=== PATIENT | female | born 1955 | race American Indian/Alaskan Native ===

== ENCOUNTER 2017-01-12 05:41 | Inpatient (IN) | payer OTHER ==
--- NOTE | 2017-01-12 06:22 | Emergency Department Report ---
ED General Adult HPI - General Chief complaint: Abdominal Pain Stated complaint: ABD PAIN Time Seen by Provider: 01/12/17 06:15 Source: patient Mode of arrival: Ambulatory Limitations: No Limitations - History of Present Illness Initial comments: Patient states that yesterday she swallowed a camera for video endoscopy. During the day she began to have crampy abdominal pain which became more constant and present in the mid abdominal region. It did not radiate nor involve the back at all. She denied fever or chills nausea and vomiting. She states that it's been a year since she's had pain like this before. She relates the pain to a "pancreatic tumor". She doesn't know if the tumor is benign as she has never had a biopsy. She states that diagnosis was made at [facility] one year ago and they were never recommended a biopsy. She denies a history of gallstones and also denies a history of pancreatic cyst or pancreatitis. Despite denying a pancreatic pseudocyst, CT of the abdomen here showed that the patient does indeed have a pancreatic pseudocyst at that time without pancreatitis. -: Gradual, days(s) Location: abdomen Radiation: non-radiation Quality: aching Consistency: constant Improves with: none Worsens with: none Associated Symptoms: denies other symptoms Treatments Prior to Arrival: none - Related Data Home Medications Medication Instructions Recorded Confirmed Last Taken amLODIPine [Norvasc] 10 mg PO DAILY 01/12/17 01/12/17 01/11/17 Allergies Allergy/AdvReac Type Severity Reaction Status Date / Time No Known Allergies Allergy Verified 01/06/16 02:02 ED Review of Systems ROS: Stated complaint: ABD PAIN Other details as noted in HPI Constitutional: denies: chills, fever Eyes: denies: eye pain, eye discharge, vision change ENT: denies: ear pain, throat pain Respiratory: denies: cough, shortness of breath, wheezing Cardiovascular: denies: chest pain, palpitations Endocrine: no symptoms reported Gastrointestinal: as per HPI, abdominal pain. denies: nausea, vomiting, diarrhea Genitourinary: denies: urgency, dysuria, discharge Musculoskeletal: denies: back pain, joint swelling, arthralgia Skin: denies: rash, lesions Neurological: denies: headache, weakness, paresthesias Psychiatric: denies: anxiety, depression Hematological/Lymphatic: denies: easy bleeding, easy bruising ED Past Medical Hx - Past Medical History Previous Medical History?: Yes Hx Hypertension: Yes Additional medical history: Tumor on Pancreas - Surgical History Past Surgical History?: No - Social History Smoking Status: Current Every Day Smoker Substance Use Type: None - Medications Home Medications: Home Medications Medication Instructions Recorded Confirmed Last Taken Type amLODIPine [Norvasc] 10 mg PO DAILY 01/12/17 01/12/17 01/11/17 History ED Physical Exam - General Limitations: No Limitations General appearance: alert, in no apparent distress - Head Head exam: Present: atraumatic, normocephalic - Eye Eye exam: Present: normal appearance, PERRL, EOMI. Absent: scleral icterus - ENT ENT exam: Present: mucous membranes moist - Neck Neck exam: Present: normal inspection - Respiratory Respiratory exam: Present: normal lung sounds bilaterally. Absent: respiratory distress - Cardiovascular Cardiovascular Exam: Present: regular rate, normal rhythm. Absent: systolic murmur, diastolic murmur, rubs, gallop - GI/Abdominal GI/Abdominal exam: Present: soft, distended (perhaps somewhat), tenderness (mid abdominal discomfort to palpation without peritoneal signs), normal bowel sounds. Absent: guarding, rebound, rigid - Extremities Exam Extremities exam: Present: normal inspection - Back Exam Back exam: Present: normal inspection. Absent: CVA tenderness (R), CVA tenderness (L) - Neurological Exam Neurological exam: Present: alert, oriented X3, CN II-XII intact. Absent: motor sensory deficit - Psychiatric Psychiatric exam: Present: normal affect, normal mood - Skin Skin exam: Present: warm, dry, intact, normal color. Absent: rash ED Course Vital Signs 01/12/17 01/12/17 01/12/17 05:42 06:40 07:00 Temperature 98.1 F Pulse Rate 109 H 94 H Respiratory 16 24 Rate Blood Pressure 137/83 128/65 Blood Pressure [Left] O2 Sat by Pulse 100 93 Oximetry 01/12/17 01/12/17 01/12/17 07:22 08:00 09:00 Temperature 99.1 F Pulse Rate 102 H 87 91 H Respiratory 22 18 18 Rate Blood Pressure 124/62 140/62 Blood Pressure 128/65 [Left] O2 Sat by Pulse 100 95 99 Oximetry 01/12/17 01/12/17 01/12/17 10:11 11:00 11:26 Temperature Pulse Rate 94 H Respiratory 16 17 Rate Blood Pressure 140/62 135/67 Blood Pressure [Left] O2 Sat by Pulse 89 96 Oximetry - Reevaluation(s) Reevaluation #1: I discussed the CT report with Dr. Montgomery. Dr. Gao has seen the patient and discussed the case with me. He does not believe the patient has a surgical issue at this time. He does not recommend nasogastric suction. He does not believe the patient has partial small bowel obstruction. He is also reviewed the CT with Dr. Montgomery. I discussed the case with Dr. Lucas Jesus [facility]. He recommended the patient be given mag citrate. I have ordered this. I have placed a consult. I discussed the case with Dr. oRb. He requested that I provide bridge orders for telemetry. This has been done. 01/12/17 12:11 Reevaluation #2: On reexamination the patient remains stable. She didn't complain of some persistent abdominal pain and she was given 2 mg of morphine. She was subsequently evaluated by Dr. Gao. 01/12/17 12:12 Reevaluation #3: A chest x-ray was obtained in addition in view of the patient's hypoxia and hypercapnia. It showed no acute process. Patient states that she has been a long-term smoker. She's never been told that she has a low oxygen level. She' s never been on supplemental O2. She does not complain of any acute shortness of breath. She does not use nebulizer treatments. Her pulse oximetry was 94% on 2 L. Respiratory was directed to repeat her blood gas to assure that she is not retaining significant CO2. I suspect patient may have chronic hypercapnic respiratory failure. Hospitalist is aware of these findings. Further evaluation per hospitalist staff. 01/12/17 12:13 01/12/17 12:14 ED Medical Decision Making - Lab Data Result diagrams: 01/12/17 06:08 01/12/17 07:17 Laboratory Results - last 24 hr 01/12/17 01/12/17 06:08 06:08 WBC 11.6 H RBC 5.07 H Hgb 14.1 Hct 43.2 H MCV 85 MCH 28 MCHC 33 RDW 15.3 H Plt Count 287 Lymph % (Auto) 14.0 [place] % (Auto) 4.6 Eos % (Auto) 0.1 Baso % (Auto) 0.3 Lymph # 1.6 [place] # 0.5 Eos # 0.0 Baso # 0.0 Seg Neutrophils % 81.0 H Seg Neutrophils # 9.4 H Sodium 136 L Potassium TNR Chloride 100.0 Carbon Dioxide 25 Anion Gap 17 BUN 7 Creatinine 0.8 Estimated GFR > 60 BUN/Creatinine Ratio 8.75 Glucose 124 H Calcium 8.7 Total Bilirubin 0.40 AST TNR ALT TNR Alkaline Phosphatase TNR Total Protein 8.2 Albumin 3.5 L Albumin/Globulin Ratio 0.7 Lipase 37 - Radiology Data Radiology results: report reviewed Critical Care Time: Yes Critical care time in (mins) excluding proc time.: 75 Critical care attestation.: If time is entered above; I have spent that time in minutes in the direct care of this critically ill patient, excluding procedure time. ED Disposition Clinical Impression: Hypoxia, Chronic hypercapnic respiratory failure Abdominal pain Qualifiers: Abdominal location: periumbilical Qualified Code(s): R10.33 - Periumbilical pain COPD (chronic obstructive pulmonary disease) Qualifiers: COPD type: unspecified COPD Qualified Code(s): J44.9 - Chronic obstructive pulmonary disease, unspecified Disposition: DC-09 OP ADMIT IP TO THIS HOSP Is pt being admited?: Yes Does the pt Need Aspirin: Yes Condition: Stable Time of Disposition: 12:16
[2017-01-12 06:36] LABS: Basophils % (Auto) 0.3 % (0.0-1.8); Eosinophils % (Auto) 0.1 % (0.0-4.3); Hematocrit 43.2 % (30.3-42.9); Hemoglobin 14.1 gm/dl (10.1-14.3); Mean Corpuscular HGB Conc 33 % (30-34); Mean Corpuscular Hemoglobin 28 pg (28-32); Mean Corpuscular Volume 85 fl (79-97); Platelet Count 287 K/mm3 (140-440); Red Blood Count 5.07 M/mm3 (3.65-5.03); Red Cell Distribution Width 15.3 % (13.2-15.2); White Blood Count 11.6 K/mm3 (4.5-11.0)
[2017-01-12] MEDS ORDERED: ZOFRAN IV ONE (06:49)
[2017-01-12] MEDS ORDERED: NACL 0.9% 1000 ML 1,000 ML IV ONE (06:49)
[2017-01-12] MEDS ORDERED: MORPHINE IV ONE ×3 (06:49→11:12)
[2017-01-12 06:51] LABS: Albumin 3.5 g/dL (3.9-5); Albumin/Globulin Ratio 0.7 %; Anion Gap 17 mmol/L; BUN/Creatinine Ratio 8.75; Blood Urea Nitrogen 7 mg/dL (7-17); Calcium 8.7 mg/dL (8.4-10.2); Carbon Dioxide 25 mmol/L (22-30); Glucose 124 mg/dL (65-100); Lipase 37 units/L (13-60); Sodium 136 mmol/L (137-145); Total Protein 8.2 g/dL (6.3-8.2)
[2017-01-12 06:53] LABS: Alanine Aminotransferase TNR units/L (7-56)
[2017-01-12 06:55] LABS: Potassium TNR mmol/L (3.6-5.0)
[2017-01-12 06:56] LABS: Alkaline Phosphatase TNR units/L (35-129)
[2017-01-12] MEDS ORDERED: NACL ONE (07:00)
[2017-01-12 07:46] LABS: Alanine Aminotransferase 7 units/L (7-56); Albumin 3.6 g/dL (3.9-5); Albumin/Globulin Ratio 0.9 %; Alkaline Phosphatase 80 units/L (35-129); Anion Gap 16 mmol/L; BUN/Creatinine Ratio 11.42; Blood Urea Nitrogen 8 mg/dL (7-17); Calcium 8.5 mg/dL (8.4-10.2); Carbon Dioxide 27 mmol/L (22-30); Chloride 98.7 mmol/L (98-107); Glucose 143 mg/dL (65-100); Potassium 3.9 mmol/L (3.6-5.0); Sodium 138 mmol/L (137-145); Total Protein 7.6 g/dL (6.3-8.2)
[2017-01-12 07:52] LABS: Bilirubin,Direct < 0.2 mg/dL (0-0.2)
[2017-01-12 08:47] LABS: Bilirubin,Urine NEG (Negative)
[2017-01-12 08:48] LABS: Blood,Urine NEG (Negative); Ketones,Urine NEG (Negative); Leukocyte Esterase,Urine NEG (Negative); Mucus,Urine FEW /HPF; Nitrite,Urine NEG (Negative); Urobilinogen,Urine < 2.0 mg/dL (<2.0)
--- NOTE | 2017-01-12 09:40 | Cat Scan Report ---
CT SCAN OF THE ABDOMEN AND PELVIS WITH CONTRAST: HISTORY: Abdominal pain. TECHNIQUE: Helical CT in 1.25mm intervals following IV contrast. Sagittal and coronal reconstructions. FINDINGS: Compared to 01/06/16. Heart size remains normal. The lung bases are clear. No acute bony injury or suspicious bony nodule. The liver, biliary system, spleen, pancreas and adrenal glands are unremarkable. There are multiple bilateral small renal cysts measuring less than 1.5 cm. No evidence for hydronephrosis or perinephric fluid. The ureters and bladder are unremarkable. A fundal fibroid measures 6 point centimeters. The adnexa are unremarkable. Trace pelvic fluid is noted. Circumferential thickening of a few distal small bowel loops is again demonstrated and consistent with a nonspecific enteritis. There is a radiopaque density which generates streak artifact and a distal small bowel loop on image 243, series 2. This is best demonstrated on the medical corps officer image. This may represent an ingested foreign body. There are a few borderline dilated proximal small bowel loops. There may be low level obstruction. Please correlate with the patient and images. IMPRESSION: Findings consistent with a nonspecific enteritis which has improved slightly since 01/06/16. There is suggestion of an intraluminal/ingested foreign body in a distal small bowel loop as outlined above. Please correlate with the patient and images. There may be a low level obstruction. Multiple bilateral renal cysts. Uterine fibroid.
[2017-01-12 10:44] LABS: ISTAT Base Excess 1; ISTAT DEVICE 0; ISTAT HCO3 26.9; ISTAT PCO2 54.1 (35-45); ISTAT PH 7.305 (7.35-7.45); ISTAT PO2 49 (80-105); ISTAT SO2 80; ISTAT TCO2 29
--- NOTE | 2017-01-12 11:29 | XRay Report ---
AP chest x-ray. History: Hypoxia. Findings: The heart, lungs, and pulmonary vessels are within normal limits.
--- NOTE | 2017-01-12 11:57 | Admit Criteria Form ---
Admission Criteria Documentation: RESPIRATORY FAILURE GRG Clinical Indications for Admission to Inpatient Care (Place 'X' for any and all applicable criteria): Hospital admission is needed for appropriate care of the patient because of acute respiratory failure or insufficiency as indicated by ANY ONE of the following(1)(2)(3)(4)(5)(6)(7)(8): [ ]I. Mechanical ventilation needed (acute invasive or noninvasive) [X ]II. Severe ventilation deficit as indicated by ANY ONE of the following (9 ) [ X]a) Respiratory acidosis (pH less than 7.32 and partial pressure of carbon dioxide greater than 40 mm Hg (5.3 kPa)) [ ]b) Partial pressure of carbon dioxide greater than 44 mm Hg (5.9 kPa ) (new) [ ]c) Airflow measurements less than 25% of predicted (eg, peak expiratory flow rate less than 100 L/minute) [ ]d) Forced vital capacity less than 15 mL/kg of ideal body weight, or 50% decrease in vital capacity from baseline [ ]III. Noncardiac pulmonary edema not resolving with rapid emergency treatment (8) [ ]IV. Severe respiratory distress as indicated by ANY ONE of the following: [ ]a) Severe tachypnea (respiratory rate greater than 30, greater than 45 for 6-month-old, greater than 60 for ) [ ]b) Severe hypoxemia (partial pressure of oxygen less than 50 mm Hg ( 6.7 kPa) on greater than 50% oxygen or partial pressure of oxygen to FIO2 ratio less than 200) [ ]c) Mental status deterioration from respiratory disease [ ]V. Airway obstruction or inadequate protection [A](10)(11) The original [employer] content created by [employer] has been revised. The portions of the content which have been revised are identified through the use of italic text or in bold, and [employer], [facility] [employer] has neither reviewed nor approved the modified material. All other unmodified content is copyright [employer]. Please see references footnoted in the original [employer] edition 2016 Admission Criteria Met: Yes
[2017-01-12] MEDS ORDERED: CITRATE OF MAGNESIA PO ONE ×2 (12:07→17:00)
--- NOTE | 2017-01-12 13:49 | Gastroenterology Consultation ---
History of Present Illness - Reason for Consult Consult date: 01/12/17 abd pain/pill cam hang up Requesting physician: LIANG OSEGUERA - History of Present Illness Patient is a 61 y/o female who presented to the ER with c/o abd pain that developed yesterday after swallowing a pill cam for a capsule endoscopy ordered by Dr. Barragan at [place]. She is also having episodes of N/V. CT scan revealed nonspecific enteritis and an intraluminal/ingested foreign body it the distal small bowel. Her abdomen is soft and non-distended with generalized TTP. Denies fever, wt loss, dysphagia, hematemesis, melena, diarrhea, constipation, or hematochezia. PMH significant for HTN and Asthma. Past History Past Medical History: hypertension, other (asthma) Past Surgical History: , Other (tubal ligation) Social history: lives with family, smoking. denies: alcohol abuse Medications and Allergies Allergies Allergy/AdvReac Type Severity Reaction Status Date / Time No Known Allergies Allergy Verified 01/06/16 02:02 Home Medications Medication Instructions Recorded Confirmed Last Taken Type amLODIPine [Norvasc] 10 mg PO DAILY 01/12/17 01/12/17 01/11/17 History Active Meds: Active Medications Aspirin (Baby Aspirin) 81 mg PO QDAY JARRETT Review of Systems - Review of Systems All systems: negative Gastrointestinal: abdominal pain, nausea, vomiting Exam - Constitutional Vital Signs: Temp Pulse Resp BP Pulse Ox 99.1 F 100 H 17 135/67 96 01/12/17 07:22 01/12/17 12:45 01/12/17 11:26 01/12/17 11:00 01/12/17 11:00 General appearance: no acute distress, well-nourished - EENT Eyes: PERRL, EOM intact ENT: hearing intact - Neck Neck: supple, normal ROM - Respiratory Respiratory: bilateral: diminished - Cardiovascular Rhythm: regular Heart Sounds: Present: S1 & S2 - Gastrointestinal General gastrointestinal: Present: soft, tender (generalized), non-distended, normal bowel sounds - Integumentary Integumentary: Present: warm, dry - Neurologic Neurological: alert and oriented x3 - Psychiatric Psychiatric: appropriate mood/affect, cooperative - Labs CBC & Chem 7: 01/12/17 06:08 01/12/17 07:17 Assessment and Plan 1.abd pain 2.ingestion of foreign body (pill cam) -abd pain developed after swallowing a pill cam yesterday for a capsule endoscopy -CT scan revealed nonspecific colitis and an intraluminal/ingested foreign body in the distal small bowel -will give magnesium citrate now -KUB in am -will start on empiric antibiotics (flagyl and levaquin) -continue supportive care -will follow
[2017-01-12] MEDS ORDERED: FLAGYL 500 MG/100 ML 500 MG/100 ML BAG IV SCH (14:00)
[2017-01-12] MEDS ORDERED: ZOFRAN IV PRN ×2 (14:06→20:54)
[2017-01-12 18:20] LABS: ISTAT Base Excess 5; ISTAT PH 7.369 (7.35-7.45); ISTAT PO2 81 (80-105); ISTAT SO2 95; ISTAT TCO2 32
--- NOTE | 2017-01-12 20:50 | History and Physical Report ---
History of Present Illness Date of examination: 01/12/17 Date of admission: 01/12/17 11:32 Chief complaint: Abd pain for 1 day History of present illness: History of Present Illness Patient states that yesterday she swallowed a camera for video endoscopy. During the day she began to have crampy abdominal pain which became more constant and present in the mid abdominal region. It did not radiate nor involve the back at all. She denied fever or chills nausea and vomiting. She states that it's been a year since she's had pain like this before. She relates the pain to a "pancreatic tumor". She doesn't know if the tumor is benign as she has never had a biopsy. She states that diagnosis was made at [place] one year ago and they were never recommended a biopsy. She denies a history of gallstones and also denies a history of pancreatic cyst or pancreatitis. Despite denying a pancreatic pseudocyst, CT of the abdomen here showed that the patient does indeed have a pancreatic pseudocyst at that time without pancreatitis. -: Gradual, days(s) Location: abdomen Radiation: non-radiation Quality: aching Consistency: constant Improves with: none Worsens with: none Associated Symptoms: denies other symptoms Treatments Prior to Arrival: none - Related Data Home Medications Medication Instructions Recorded Confirmed Last Taken amLODIPine [Norvasc] 10 mg PO DAILY 01/12/17 01/12/17 01/11/17 Allergies Allergy/AdvReac Type Severity Reaction Status Date / Time No Known Allergies Allergy Verified 01/06/16 02:02 ROS: Stated complaint: ABD PAIN Other details as noted in HPI Constitutional: denies: chills, fever Eyes: denies: eye pain, eye discharge, vision change ENT: denies: ear pain, throat pain Respiratory: denies: cough, shortness of breath, wheezing Cardiovascular: denies: chest pain, palpitations Endocrine: no symptoms reported Gastrointestinal: as per HPI, abdominal pain. denies: nausea, vomiting, diarrhea Genitourinary: denies: urgency, dysuria, discharge Musculoskeletal: denies: back pain, joint swelling, arthralgia Skin: denies: rash, lesions Neurological: denies: headache, weakness, paresthesias Psychiatric: denies: anxiety, depression Hematological/Lymphatic: denies: easy bleeding, easy bruising - Past Medical History Previous Medical History?: Yes Hx Hypertension: Yes Additional medical history: Tumor on Pancreas - Surgical History Past Surgical History?: No - Social History Smoking Status: Current Every Day Smoker Substance Use Type: None - Medications Home Medications: Home Medications Medication Instructions Recorded Confirmed Last Taken Type amLODIPine [Norvasc] 10 mg PO DAILY 01/12/17 01/12/17 01/11/17 History Past History Past Medical History: hypertension, other (asthma) Past Surgical History: , Other (tubal ligation) Social history: lives with family, smoking. denies: alcohol abuse Medications and Allergies Allergies Allergy/AdvReac Type Severity Reaction Status Date / Time No Known Allergies Allergy Verified 01/06/16 02:02 Home Medications Medication Instructions Recorded Confirmed Last Taken Type amLODIPine [Norvasc] 10 mg PO DAILY 01/12/17 01/12/17 01/11/17 History Active Meds: Active Medications Aspirin (Baby Aspirin) 81 mg PO QDAY JARRETT Levofloxacin/Dextrose (Levaquin 500mg/100ml) 500 mg in 100 mls @ 100 mls/hr IV Q24HR JARRETT PRN Reason: Protocol Metronidazole (Flagyl 500 Mg/100 Ml) 500 mg in 100 mls @ 100 mls/hr IV Q8H AJRRETT Ondansetron HCl (Zofran) 4 mg IV Q4H PRN PRN Reason: Nausea And Vomiting Exam - Constitutional Vitals: Temp Pulse Resp BP Pulse Ox 98.4 F 97 H 18 123/75 94 01/12/17 16:40 01/12/17 16:40 01/12/17 16:40 01/12/17 16:40 01/12/17 16:40 General appearance: Present: no acute distress, well-nourished - EENT Eyes: Present: PERRL ENT: hearing intact, clear oral mucosa - Neck Neck: Present: supple, normal ROM - Respiratory Respiratory effort: normal Respiratory: bilateral: CTA - Cardiovascular Heart rate: 70 Rhythm: regular Heart Sounds: Present: S1 & S2. Absent: rub, click - Extremities Extremities: no ischemia, pulses symmetrical, No edema Peripheral Pulses: within normal limits - Abdominal General gastrointestinal: Present: soft, tender (Periumblical region), non- distended, normal bowel sounds Female genitourinary: Present: normal - Integumentary Integumentary: Present: clear, warm, dry - Musculoskeletal Musculoskeletal: gait normal, strength equal bilaterally - Psychiatric Psychiatric: appropriate mood/affect, intact judgment & insight - Neurologic Neurologic: CNII-XII intact, moves all extremities Results - Labs CBC & Chem 7: 01/13/17 05:56 01/13/17 05:56 Labs: Laboratory Last Values WBC 11.6 K/mm3 (4.5-11.0) H 01/12/17 06:08 RBC 5.07 M/mm3 (3.65-5.03) H 01/12/17 06:08 Hgb 14.1 gm/dl (10.1-14.3) 01/12/17 06:08 Hct 43.2 % (30.3-42.9) H 01/12/17 06:08 MCV 85 fl (79-97) 01/12/17 06:08 MCH 28 pg (28-32) 01/12/17 06:08 MCHC 33 % (30-34) 01/12/17 06:08 RDW 15.3 % (13.2-15.2) H 01/12/17 06:08 Plt Count 287 K/mm3 (140-440) 01/12/17 06:08 Lymph % (Auto) 14.0 % (13.4-35.0) 01/12/17 06:08 [place] % (Auto) 4.6 % (0.0-7.3) 01/12/17 06:08 Eos % (Auto) 0.1 % (0.0-4.3) 01/12/17 06:08 Baso % (Auto) 0.3 % (0.0-1.8) 01/12/17 06:08 Lymph # 1.6 K/mm3 (1.2-5.4) 01/12/17 06:08 [place] # 0.5 K/mm3 (0.0-0.8) 01/12/17 06:08 Eos # 0.0 K/mm3 (0.0-0.4) 01/12/17 06:08 Baso # 0.0 K/mm3 (0.0-0.1) 01/12/17 06:08 Seg Neutrophils % 81.0 % (40.0-70.0) H 01/12/17 06:08 Seg Neutrophils # 9.4 K/mm3 (1.8-7.7) H 01/12/17 06:08 POC ABG pH 7.369 (7.35-7.45) 01/12/17 17:59 POC ABG pCO2 52.0 (35-45) H 01/12/17 17:59 POC ABG pO2 81 (80-105) 01/12/17 17:59 POC ABG HCO3 30.0 01/12/17 17:59 POC ABG Total CO2 32 01/12/17 17:59 POC ABG O2 Sat 95 01/12/17 17:59 POC ABG Base Excess 5 01/12/17 17:59 FiO2 2 % 01/12/17 17:59 Sodium 138 mmol/L (137-145) 01/12/17 07:17 Potassium 3.9 mmol/L (3.6-5.0) 01/12/17 07:17 Chloride 98.7 mmol/L (98-107) 01/12/17 07:17 Carbon Dioxide 27 mmol/L (22-30) 01/12/17 07:17 Anion Gap 16 mmol/L 01/12/17 07:17 BUN 8 mg/dL (7-17) 01/12/17 07:17 Creatinine 0.7 mg/dL (0.7-1.2) 01/12/17 07:17 Estimated GFR > 60 ml/min 01/12/17 07:17 BUN/Creatinine Ratio 11.42 % 01/12/17 07:17 Glucose 143 mg/dL (65-100) H 01/12/17 07:17 Calcium 8.5 mg/dL (8.4-10.2) 01/12/17 07:17 Total Bilirubin 0.50 mg/dL (0.1-1.2) 01/12/17 07:17 Direct Bilirubin < 0.2 mg/dL (0-0.2) 01/12/17 07:17 AST 19 units/L (5-40) 01/12/17 07:17 ALT 7 units/L (7-56) 01/12/17 07:17 Alkaline Phosphatase 80 units/L (35-129) 01/12/17 07:17 Total Protein 7.6 g/dL (6.3-8.2) 01/12/17 07:17 Albumin 3.6 g/dL (3.9-5) L 01/12/17 07:17 Albumin/Globulin Ratio 0.9 % 01/12/17 07:17 Lipase 37 units/L (13-60) 01/12/17 06:08 Urine Color Yellow (Yellow) 01/12/17 08:29 Urine Turbidity Clear (Clear) 01/12/17 08:29 Urine pH 7.0 (5.0-7.0) 01/12/17 08:29 Ur Specific [place] 1.020 (1.003-1.030) 01/12/17 08:29 Urine Protein 100 mg/dl mg/dL (Negative) 01/12/17 08:29 Urine Glucose (UA) Neg mg/dL (Negative) 01/12/17 08:29 Urine Ketones Neg mg/dL (Negative) 01/12/17 08:29 Urine Blood Neg (Negative) 01/12/17 08:29 Urine Nitrite Neg (Negative) 01/12/17 08:29 Urine Bilirubin Neg (Negative) 01/12/17 08:29 Urine Urobilinogen < 2.0 mg/dL (<2.0) 01/12/17 08:29 Ur Leukocyte Esterase Neg (Negative) 01/12/17 08:29 Urine WBC (Auto) 1.0 /HPF (0.0-6.0) 01/12/17 08:29 Urine RBC (Auto) 3.0 /HPF (0.0-6.0) 01/12/17 08:29 U Epithel Cells (Auto) 7.0 /HPF (0-13.0) 01/12/17 08:29 Urine Mucus Few /HPF 01/12/17 08:29 Short CBC 01/13/17 Range/Units 05:56 WBC 9.3 (4.5-11.0) K/mm3 Hgb 12.8 (10.1-14.3) gm/dl Hct 40.1 (30.3-42.9) % Plt Count 302 (140-440) K/mm3 BMP 01/13/17 05:56 Sodium 141 Potassium 4.2 Chloride 102.3 Carbon Dioxide 28 BUN 15 Creatinine 0.9 Glucose 104 H Calcium 8.4 Liver Function 01/13/17 Range/Units 05:56 Total Bilirubin 0.40 (0.1-1.2) mg/dL AST 13 (5-40) units/L ALT 6 L (7-56) units/L Alkaline Phosphatase 69 (35-129) units/L Albumin 3.1 L (3.9-5) g/dL Urine 01/12/17 Range/Units 08:29 Urine Color Yellow (Yellow) Urine pH 7.0 (5.0-7.0) Ur Specific [place] 1.020 (1.003-1.030) Urine Protein 100 mg/dl (Negative) mg/dL Urine Glucose (UA) Neg (Negative) mg/dL - Imaging and Cardiology EKG: report reviewed Chest x-ray: report reviewed CT scan - abdomen: report reviewed Assessment and Plan Advance Directives: Yes (FC) VTE prophylaxis?: Chemical Plan of care discussed with patient/family: Yes - Patient Problems (1) Colitis Current Visit: Yes Status: Acute Plan to address problem: Patient started on Flagyl and Levaquin by GI (2) SBO (small bowel obstruction) Current Visit: Yes Status: Acute Plan to address problem: Mild-should resolve spontaneously.More in favor of FB(Pill camera) induced colic.Started on Clear liquids.Surgery consulted (3) HTN (hypertension) Current Visit: Yes Status: Chronic Qualifiers: Hypertension type: essential hypertension Qualified Code(s): I10 - Essential (primary) hypertension Plan to address problem: Cont Anti hypertensives (4) DVT prophylaxis Current Visit: Yes Status: Acute Plan to address problem: on lovenox
[2017-01-12] MEDS ORDERED: DILAUDID IV PRN (20:54)
[2017-01-12] MEDS ORDERED: DULCOLAX PR PRN (20:54)
[2017-01-12] MEDS ORDERED: MILK OF MAGNESIA PO PRN (20:54)
[2017-01-12] MEDS ORDERED: TYLENOL PO PRN (20:54)
[2017-01-12] MEDS ORDERED: PERCOCET 5/325 PO PRN (20:54)
[2017-01-12] MEDS: LEVAQUIN 500MG/100ML 500 MG/100 ML BAG IV SCH (20:57)
[2017-01-12] MEDS: D5NS 1,000 ML IV SCH (21:13)
--- NOTE | 2017-01-12 21:18 | Consultation ---
HISTORY OF PRESENT ILLNESS: This patient apparently had abdominal pain. She was at [place] yesterday where she had an upper endoscopy and inserted a small GI camera. She had it now. This was taken about 24 hours ago. She has been having some abdominal pain and nausea. She had no problem with her bowel movements. She had no fever, no chills. She has been having the pain for some time now. She was told that she had a pancreatic tumor; however, by our radiologist, Dr. Montgomery said that she had a renal cyst on the left side. The patient gives a history of tubal ligation. She had 5 children with section. She denied any diabetes. ALLERGIES: She is not allergic to any medicines. PHYSICAL EXAMINATION: GENERAL: Showed a well-preserved black female. She is in no distress. She is in minimal to moderate pain to the mid epigastrium to the left side. HEAD AND NECK: Negative. NECK: Supple. BREASTS: Symmetrical. CHEST: Essentially clear to me. HEART: Sounds are normal. ABDOMEN: Protuberant, soft; however, some tenderness in the mid epigastric area. EXTREMITIES: Showed no evidence of any edema. LABORATORY DATA: The patient had a CBC that showed a white count of 11.6, hematocrit 43. Sodium 138, potassium 3.9, the BUN was 8, total bilirubin 0.5, the albumin is . IMPRESSION AND PLAN: I had a lengthy talk with the patient. I believe her problem does not look surgical to me. I saw the x-rays and saw the CAT scan. I read them with Dr. Montgomery. We could see the camera toward the distal ileal aspect. There is no dilated bowel loops there. There is no free air. I talked with our ER physician to see if she could be transferred to her historian research assistant who seen her yesterday and who took care for the camera on her. Surgically speaking, I do not think anything needs to be done, just pain management and so forth, but we need to look into the area of the GI problem that she has. I suggested to our ER physician to have her transferred feasible to [place] where they saw her yesterday in the afternoon. JOB# [id number] MONALISA/MICHAEL
[2017-01-12] MEDS: NORVASC PO SCH (22:02)
[2017-01-13] MEDS: FLAGYL 500 MG/100 ML 500 MG/100 ML BAG IV SCH ×2 (02:03→16:47)
[2017-01-13 06:58] LABS: Basophils % (Auto) 0.3 % (0.0-1.8); Eosinophils % (Auto) 0.4 % (0.0-4.3); Hematocrit 40.1 % (30.3-42.9); Hemoglobin 12.8 gm/dl (10.1-14.3); Mean Corpuscular HGB Conc 32 % (30-34); Mean Corpuscular Hemoglobin 27 pg (28-32); Mean Corpuscular Volume 86 fl (79-97); Platelet Count 302 K/mm3 (140-440); Red Blood Count 4.68 M/mm3 (3.65-5.03); Red Cell Distribution Width 15.2 % (13.2-15.2); White Blood Count 9.3 K/mm3 (4.5-11.0)
[2017-01-13 07:26] LABS: Alanine Aminotransferase 6 units/L (7-56); Albumin 3.1 g/dL (3.9-5); Albumin/Globulin Ratio 0.8 %; Alkaline Phosphatase 69 units/L (35-129); Anion Gap 15 mmol/L; BUN/Creatinine Ratio 16.66; Blood Urea Nitrogen 15 mg/dL (7-17); Calcium 8.4 mg/dL (8.4-10.2); Carbon Dioxide 28 mmol/L (22-30); Chloride 102.3 mmol/L (98-107); Glucose 104 mg/dL (65-100); Potassium 4.2 mmol/L (3.6-5.0); Sodium 141 mmol/L (137-145); Total Protein 6.9 g/dL (6.3-8.2)
--- NOTE | 2017-01-13 09:24 | XRay Report ---
Supine and upright views of the abdomen: Abdominal pain; foreign body ingestion. There are a couple of slightly dilated air-filled loops of small bowel in the left abdomen. It is an unremarkable colonic gas pattern. There is a metallic appearing foreign body in the right lower quadrant overlying a bowel loop. There is no free air and no obvious ascites. No findings. Impression: Nonspecific bowel pattern. Foreign body in right lower quadrant.
[2017-01-13] MEDS: NORVASC PO SCH (09:47)
[2017-01-13] MEDS: LEVAQUIN 500MG/100ML 500 MG/100 ML BAG IV SCH (09:47)
[2017-01-13] MEDS: BABY ASPIRIN PO SCH (09:47)
[2017-01-13] MEDS: D5NS 1,000 ML IV SCH ×2 (09:48→20:33)
[2017-01-13] MEDS ORDERED: CITRATE OF MAGNESIA PO ONE ×2 (10:53→17:00)
--- NOTE | 2017-01-13 12:02 | Progress Note ---
Assessment and Plan Assessment and plan: Enteritis/colitis. Continue IV Flagyl and Levaquin. GI following. Patient with recent ingestion of foreign body (pill cam) for capsule endoscopy. SBO. GI and surgery consultations. Hypertension. Resume antihypertensive medications. DVT prophylaxis. History Interval history: No new issues overnight. Patient still complains of epigastric pain. Hospitalist Physical - Constitutional Vitals: Temp Pulse Resp BP Pulse Ox 98.3 F 66 16 93/49 97 01/13/17 07:56 01/13/17 07:56 01/13/17 07:56 01/13/17 07:56 01/13/17 08:40 General appearance: Present: no acute distress, well-nourished - EENT Eyes: Present: PERRL, EOM intact ENT: hearing intact, clear oral mucosa, dentition normal - Neck Neck: Present: supple, normal ROM - Respiratory Respiratory effort: normal Respiratory: bilateral: CTA - Cardiovascular Rhythm: regular Heart Sounds: Present: S1 & S2. Absent: gallop, rub - Extremities Extremities: no ischemia, No edema, Full ROM - Abdominal General gastrointestinal: soft, tender, non-distended, normal bowel sounds Localized gastrointestinal: tender: epigastric periumbilical (mild) - Integumentary Integumentary: Present: clear, warm, dry - Neurologic Neurologic: CNII-XII intact, moves all extremities Results - Labs CBC & Chem 7: 01/13/17 05:56 01/13/17 05:56 Labs: Laboratory Last Values WBC 9.3 K/mm3 (4.5-11.0) 01/13/17 05:56 RBC 4.68 M/mm3 (3.65-5.03) 01/13/17 05:56 Hgb 12.8 gm/dl (10.1-14.3) 01/13/17 05:56 Hct 40.1 % (30.3-42.9) 01/13/17 05:56 MCV 86 fl (79-97) 01/13/17 05:56 MCH 27 pg (28-32) L 01/13/17 05:56 MCHC 32 % (30-34) 01/13/17 05:56 RDW 15.2 % (13.2-15.2) 01/13/17 05:56 Plt Count 302 K/mm3 (140-440) 01/13/17 05:56 Lymph % (Auto) 17.8 % (13.4-35.0) 01/13/17 05:56 Mclean % (Auto) 10.1 % (0.0-7.3) H 01/13/17 05:56 Eos % (Auto) 0.4 % (0.0-4.3) 01/13/17 05:56 Baso % (Auto) 0.3 % (0.0-1.8) 01/13/17 05:56 Lymph # 1.6 K/mm3 (1.2-5.4) 01/13/17 05:56 Mclean # 0.9 K/mm3 (0.0-0.8) H 01/13/17 05:56 Eos # 0.0 K/mm3 (0.0-0.4) 01/13/17 05:56 Baso # 0.0 K/mm3 (0.0-0.1) 01/13/17 05:56 Seg Neutrophils % 71.4 % (40.0-70.0) H 01/13/17 05:56 Seg Neutrophils # 6.6 K/mm3 (1.8-7.7) 01/13/17 05:56 POC ABG pH 7.369 (7.35-7.45) 01/12/17 17:59 POC ABG pCO2 52.0 (35-45) H 01/12/17 17:59 POC ABG pO2 81 (80-105) 01/12/17 17:59 POC ABG HCO3 30.0 01/12/17 17:59 POC ABG Total CO2 32 01/12/17 17:59 POC ABG O2 Sat 95 01/12/17 17:59 POC ABG Base Excess 5 01/12/17 17:59 FiO2 2 % 01/12/17 17:59 Sodium 141 mmol/L (137-145) 01/13/17 05:56 Potassium 4.2 mmol/L (3.6-5.0) 01/13/17 05:56 Chloride 102.3 mmol/L (98-107) 01/13/17 05:56 Carbon Dioxide 28 mmol/L (22-30) 01/13/17 05:56 Anion Gap 15 mmol/L 01/13/17 05:56 BUN 15 mg/dL (7-17) 01/13/17 05:56 Creatinine 0.9 mg/dL (0.7-1.2) 01/13/17 05:56 Estimated GFR > 60 ml/min 01/13/17 05:56 BUN/Creatinine Ratio 16.66 % 01/13/17 05:56 Glucose 104 mg/dL (65-100) H 01/13/17 05:56 Calcium 8.4 mg/dL (8.4-10.2) 01/13/17 05:56 Total Bilirubin 0.40 mg/dL (0.1-1.2) 01/13/17 05:56 Direct Bilirubin < 0.2 mg/dL (0-0.2) 01/12/17 07:17 AST 13 units/L (5-40) 01/13/17 05:56 ALT 6 units/L (7-56) L 01/13/17 05:56 Alkaline Phosphatase 69 units/L (35-129) 01/13/17 05:56 Total Protein 6.9 g/dL (6.3-8.2) 01/13/17 05:56 Albumin 3.1 g/dL (3.9-5) L 01/13/17 05:56 Albumin/Globulin Ratio 0.8 % 01/13/17 05:56 Lipase 37 units/L (13-60) 01/12/17 06:08 Urine Color Yellow (Yellow) 01/12/17 08:29 Urine Turbidity Clear (Clear) 01/12/17 08:29 Urine pH 7.0 (5.0-7.0) 01/12/17 08:29 Ur Specific Fortine 1.020 (1.003-1.030) 01/12/17 08:29 Urine Protein 100 mg/dl mg/dL (Negative) 01/12/17 08:29 Urine Glucose (UA) Neg mg/dL (Negative) 01/12/17 08:29 Urine Ketones Neg mg/dL (Negative) 01/12/17 08:29 Urine Blood Neg (Negative) 01/12/17 08:29 Urine Nitrite Neg (Negative) 01/12/17 08:29 Urine Bilirubin Neg (Negative) 01/12/17 08:29 Urine Urobilinogen < 2.0 mg/dL (<2.0) 01/12/17 08:29 Ur Leukocyte Esterase Neg (Negative) 01/12/17 08:29 Urine WBC (Auto) 1.0 /HPF (0.0-6.0) 01/12/17 08:29 Urine RBC (Auto) 3.0 /HPF (0.0-6.0) 01/12/17 08:29 U Epithel Cells (Auto) 7.0 /HPF (0-13.0) 01/12/17 08:29 Urine Mucus Few /HPF 01/12/17 08:29
--- NOTE | 2017-01-13 14:29 | Gastroenterology Progress Note ---
Assessment and Plan GI: pt presents w/ probable pill cam in small bowel not passed - pt encouraged to ambulate and will give mag citrate again - await surgery input - KUB in am - will follow Subjective Date of service: 01/13/17 Interval history: - reports mild abdominal pain, denies other complaints Objective - Constitutional Vitals: Temp Pulse Resp BP Pulse Ox 98.2 F 85 16 110/60 96 01/13/17 12:18 01/13/17 12:18 01/13/17 12:18 01/13/17 12:18 01/13/17 12:18 General appearance: no acute distress - Respiratory Respiratory: bilateral: CTA - Cardiovascular Rhythm: regular Heart Sounds: Present: S1 & S2 - Gastrointestinal General gastrointestinal: Present: soft, non-tender - Labs CBC & Chem 7: 01/13/17 05:56 01/13/17 05:56 Labs: Laboratory Results - last 24 hr 01/12/17 01/13/17 01/13/17 17:59 05:56 05:56 WBC 9.3 RBC 4.68 Hgb 12.8 Hct 40.1 MCV 86 MCH 27 L MCHC 32 RDW 15.2 Plt Count 302 Lymph % (Auto) 17.8 Bibb % (Auto) 10.1 H Eos % (Auto) 0.4 Baso % (Auto) 0.3 Lymph # 1.6 Bibb # 0.9 H Eos # 0.0 Baso # 0.0 Seg Neutrophils % 71.4 H Seg Neutrophils # 6.6 POC ABG pH 7.369 POC ABG pCO2 52.0 H POC ABG pO2 81 POC ABG HCO3 30.0 POC ABG Total CO2 32 POC ABG O2 Sat 95 POC ABG Base Excess 5 FiO2 2 Sodium 141 Potassium 4.2 Chloride 102.3 Carbon Dioxide 28 Anion Gap 15 BUN 15 Creatinine 0.9 Estimated GFR > 60 BUN/Creatinine Ratio 16.66 Glucose 104 H Calcium 8.4 Total Bilirubin 0.40 AST 13 ALT 6 L Alkaline Phosphatase 69 Total Protein 6.9 Albumin 3.1 L Albumin/Globulin Ratio 0.8
--- NOTE | 2017-01-13 15:33 | Progress Note ---
Subjective Patient Reports: Positive: feels better, pain is less, flatus Narrative: feels much better ambulatory started on liq will check KUB , home in AM . Objective Vital Signs - 12hr 01/13/17 01/13/17 01/13/17 05:25 07:56 08:40 Temperature 97.9 F 98.3 F Pulse Rate 67 66 Respiratory 20 16 Rate Blood Pressure 103/55 93/49 O2 Sat by Pulse 100 100 97 Oximetry 01/13/17 12:18 Temperature 98.2 F Pulse Rate 85 Respiratory 16 Rate Blood Pressure 110/60 O2 Sat by Pulse 96 Oximetry - Labs 01/13/17 05:56 01/13/17 05:56 Diabetes panel 01/13/17 Range/Units 05:56 Sodium 141 (137-145) mmol/L Potassium 4.2 (3.6-5.0) mmol/L Chloride 102.3 (98-107) mmol/L Carbon Dioxide 28 (22-30) mmol/L BUN 15 (7-17) mg/dL Creatinine 0.9 (0.7-1.2) mg/dL Glucose 104 H (65-100) mg/dL Calcium 8.4 (8.4-10.2) mg/dL AST 13 (5-40) units/L ALT 6 L (7-56) units/L Alkaline Phosphatase 69 (35-129) units/L Total Protein 6.9 (6.3-8.2) g/dL Albumin 3.1 L (3.9-5) g/dL Calcium panel 01/13/17 Range/Units 05:56 Calcium 8.4 (8.4-10.2) mg/dL Albumin 3.1 L (3.9-5) g/dL Pituitary panel 01/13/17 Range/Units 05:56 Sodium 141 (137-145) mmol/L Potassium 4.2 (3.6-5.0) mmol/L Chloride 102.3 (98-107) mmol/L Carbon Dioxide 28 (22-30) mmol/L BUN 15 (7-17) mg/dL Creatinine 0.9 (0.7-1.2) mg/dL Glucose 104 H (65-100) mg/dL Calcium 8.4 (8.4-10.2) mg/dL Adrenal panel 01/13/17 Range/Units 05:56 Sodium 141 (137-145) mmol/L Potassium 4.2 (3.6-5.0) mmol/L Chloride 102.3 (98-107) mmol/L Carbon Dioxide 28 (22-30) mmol/L BUN 15 (7-17) mg/dL Creatinine 0.9 (0.7-1.2) mg/dL Glucose 104 H (65-100) mg/dL Calcium 8.4 (8.4-10.2) mg/dL Total Bilirubin 0.40 (0.1-1.2) mg/dL AST 13 (5-40) units/L ALT 6 L (7-56) units/L Alkaline Phosphatase 69 (35-129) units/L Total Protein 6.9 (6.3-8.2) g/dL Albumin 3.1 L (3.9-5) g/dL
[2017-01-14] MEDS: FLAGYL 500 MG/100 ML 500 MG/100 ML BAG IV SCH ×2 (01:01→11:10)
[2017-01-14 04:36] LABS: Basophils % (Auto) 0.6 % (0.0-1.8); Eosinophils % (Auto) 2.6 % (0.0-4.3); Hematocrit 38.2 % (30.3-42.9); Hemoglobin 12.2 gm/dl (10.1-14.3); Mean Corpuscular HGB Conc 32 % (30-34); Mean Corpuscular Hemoglobin 27 pg (28-32); Mean Corpuscular Volume 86 fl (79-97); Platelet Count 257 K/mm3 (140-440); Red Blood Count 4.44 M/mm3 (3.65-5.03); Red Cell Distribution Width 15.5 % (13.2-15.2); White Blood Count 6.1 K/mm3 (4.5-11.0)
[2017-01-14 04:55] LABS: Anion Gap 16 mmol/L; Blood Urea Nitrogen 7 mg/dL (7-17); Calcium 8.2 mg/dL (8.4-10.2); Carbon Dioxide 24 mmol/L (22-30); Chloride 105.4 mmol/L (98-107); Glucose 83 mg/dL (65-100); Potassium 3.8 mmol/L (3.6-5.0); Sodium 142 mmol/L (137-145)
--- NOTE | 2017-01-14 09:32 | Discharge Summary ---
Providers - Providers Date of Admission: 01/12/17 11:32 Date of discharge: 01/14/17 Attending physician: GUERLINE GUILLERMO 01/12/17 12:08 Consult to Physician [CONS] Urgent Consulting Provider: TIFF PETERSON Reason For Exam: Possible [place] pill hang up Notified:: yes Primary care physician: ELECTROPHONIC ENGINEER Hospitalization Reason for admission: abd pain Condition: Stable Hospital course: Patient is a 61 y/o female with significant past medical history of hypertension and asthma who presented to the ER with c/o abd pain that developed the day prior to admission after swallowing a pill cam for a capsule endoscopy ordered by Dr. Barragan at [place]. She was also having episodes of N/V. CT scan revealed nonspecific enteritis and an intraluminal/ingested foreign body it the distal small bowel. She Denied fever, wt loss, dysphagia, hematemesis, melena, diarrhea, constipation, or hematochezia. Patient was seen by surgery and GI consultation. Patient was treated with IV antibiotics. Patient has slow but significant improvement throughout hospitalization. Serial KUBs were monitored with no acute findings. Patient is felt to have received maximal hospital benefit. Therefore, patient will be discharged home. The dictated discharge time 31 minutes. Disposition: DC-01 TO HOME OR SELFCARE Time spent for discharge: 31 - Discharge Diagnoses (1) Abdominal pain Status: Acute Qualifiers: Abdominal location: periumbilical Qualified Code(s): R10.33 - Periumbilical pain (2) Colitis Status: Acute (3) SBO (small bowel obstruction) Status: Acute Core Measure Documentation - Palliative Care Palliative Care/ Comfort Measures: Not Applicable - Core Measures Any of the following diagnoses?: none Exam - Constitutional Vitals: Temp Pulse Resp BP Pulse Ox 98.5 F 75 16 127/61 98 01/14/17 08:47 01/14/17 08:47 01/14/17 08:47 01/14/17 08:47 01/14/17 08:47 General appearance: Present: no acute distress, well-nourished - EENT Eyes: Present: PERRL ENT: hearing intact, clear oral mucosa - Neck Neck: Present: supple, normal ROM - Respiratory Respiratory effort: normal Respiratory: bilateral: CTA - Cardiovascular Heart Sounds: Present: S1 & S2. Absent: rub, click - Extremities Extremities: pulses symmetrical, No edema Peripheral Pulses: within normal limits - Abdominal General gastrointestinal: Present: soft, non-tender, non-distended, normal bowel sounds Female genitourinary: Present: normal - Integumentary Integumentary: Present: clear, warm, dry - Musculoskeletal Musculoskeletal: gait normal, strength equal bilaterally - Psychiatric Psychiatric: appropriate mood/affect, intact judgment & insight - Neurologic Neurologic: CNII-XII intact, moves all extremities Plan Activity: no restrictions Weight Bearing Status: Full Weight Bearing Diet: regular Follow up with: PRIMARY CAREMD [Primary Care Provider] - 3-5 Days TIFF PETERSON MD [Staff Physician] - 7 Days Prescriptions: oxyCODONE /ACETAMINOPHEN [Percocet 5/325 mg] 1 tab PO Q6H PRN #6 tablet PRN Reason: Pain, Moderate (4-6)
[2017-01-14] MEDS: BABY ASPIRIN PO SCH (11:11)
[2017-01-14] MEDS: NORVASC PO SCH (11:12)
[2017-01-14 12:46] VITALS: BP 119/55
--- NOTE | 2017-01-14 13:22 | Query- Nutrition ---
Keshawn Barrett____Eric Date:____01/14/17 Package Line Relief Operator/CDS: Geremias Sanchez Phone#:____[phone] Exercise your independent professional judgment when responding to query. Questions asked do not imply a particular answer is desired or expected. We greatly appreciate your clarification on this issue. Clinical Documentation States: 61 year old female was admitted on 01/12/17. The discharge summary states " presented to the ER with c/o abd pain, She was also having episodes of N/V (2) Colitis Status: Acute (3) SBO (small bowel obstruction) " Status: Acute Clinical Findings Show: Albumin: 3.1 Please select the most appropriate option 3 [] Mild Malnutrition [] Mild - Moderate Malnutrition [] Moderate - Severe Malnutrition [] Severe Malnutrition Serum Albumin 2.8 to 3.4 g/dl or Pre-albumin 5 to 17 mg/dl1,2 Inadequate nutritional intake1,2,3,4 NPO > 5 days Weight loss: 5% in 1 month or 7.5% in 3 months or 10% in 6 months1, 3,4 BMI 16 to 18.4 or Weight <90% of ideal body weight1,2,3,4 Serum Albumin < 2.8 g/ dl1,2 Lymphocytes < 1500/ L2 Inadequate nutritional intake3, high stress e.g. major trauma, sepsis,pancreatitis, mar etc. Decubitus ulcers1,2, , skin breakdown2, easy hair pluckability2 Weight <80% standard for height2 Triceps skin fold <3 mm2 Mid-arm muscle circumference <15 cm2 Creatinine-height index <60% standard2 [ ] Cachexia [ ] Emaciated w/Malnutrition [ ] Other: [ ] Unable to determine [ ] Comment/Explanation: Present on Admission: [ ] Yes (Y) [ ] Clinically undeterminable (W) [ ] No ( N) Please also document response in your Progress Notes and/or Discharge Summary and indicate if the condition was present on admission. MTDD
--- NOTE | 2017-01-14 15:16 | Event Note ---
Date: 01/14/17 - pt kub reportedly w/ passed pill cam - ok to d/c from GI standpoint if negative kub - call if needed
--- NOTE | 2017-01-14 15:31 | XRay Report ---
KUB: Foreign body. Compared to prior examination of January 13 the metallic density previously seen in the right lower quadrant now on the left side and may lie within the descending colon. There are scattered areas of mildly dilated gas-filled loops of small and large bowel. No other findings. Impression: Foreign body progression.
== END 2017-01-14 13:30 | disposition home or self-care (01) | DRG 394 ==
LOC: ED 05:41 → 4A 11:32
PROVIDERS: ADMIT Internal Medicine; ATTEND Hospitalist
PROC: 4A033R1 Measurement of Arterial Saturation, Peripheral, Percutaneous Approach (ICD-10-PCS; principal; 2017-01-12)
DX: T18.3XXA Foreign body in small intestine, initial encounter (principal); K56.60 Unspecified intestinal obstruction; J96.11 Chronic respiratory failure with hypoxia; J96.12 Chronic respiratory failure with hypercapnia; E44.0 Moderate protein-calorie malnutrition; K52.9 Noninfective gastroenteritis and colitis, unspecified; Z79.899 Other long term (current) drug therapy; I10 Essential (primary) hypertension; Z98.51 Tubal ligation status; F17.210 Nicotine dependence, cigarettes, uncomplicated; J45.909 Unspecified asthma, uncomplicated; Y83.8 Other surgical procedures as the cause of abnormal reaction of the patient, or of later complication, without mention of misadventure at the time of the procedure; Y92.89 Other specified places as the place of occurrence of the external cause; Y93.89 Activity, other specified; Y99.8 Other external cause status
CPT/HCPCS: 36415; 36600; 71010; 74000; 74020; 74177; 80048; 80053; 80074; 81001; 82803; 83690; 85025; 94760; 96361; 96374; 96375; 96376; 99292; J1170; J1956; J2270; J2405; J7030; J7042; Q9967

== ENCOUNTER 2017-06-06 08:45 | Inpatient (IN) | payer OTHER ==
[2017-06-06] MEDS ORDERED: NACL 0.9% 500 ML 500 ML IV ONE (09:20)
[2017-06-06] MEDS ORDERED: TYLENOL PO ONE (09:21)
[2017-06-06] MEDS ORDERED: TYLENOL ONE (09:24)
--- NOTE | 2017-06-06 09:49 | XRay Report ---
ROUTINE CHEST, TWO VIEWS: HISTORY: Sepsis. Patchy right lower lobe infiltrate and trace right pleural effusion are identified. The left lung is clear. Normal heart and mediastinal structures. Normal bony structures. IMPRESSION: Right lower lobe pneumonia.
[2017-06-06] MEDS ORDERED: ROCEPHIN/NS 1 GM/50 ML 1 GM/50 ML BAG IV ONE (10:30)
[2017-06-06] MEDS ORDERED: ZITHROMAX 500 MG in NACL 0.9% 250ML 250 ML IV ONE (10:31)
--- NOTE | 2017-06-06 10:36 | Emergency Department Report ---
HPI - General Chief Complaint: Upper Respiratory Infection Time Seen by Provider: 06/06/17 10:09 - HPI HPI: This is a 61-year-old -[place] female presents to the emergency department with complaint of a 3 day history of fever, chills and a productive cough as well as some body aches. She has not checked her temperature but has felt as if she had a fever. She did not take anything for her symptoms. Presentation. She denies any tobacco or illicit drug use or abuse. No recent travel or sick contacts at home. Her primary care physician is Dr. Looney. She has a past medical history of hypertension. 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 - Social History Smoking Status: Never Smoker Substance Use Type: None - Medications Home Medications: Home Medications Medication Instructions Recorded Confirmed Last Taken Type amLODIPine [Norvasc] 10 mg PO DAILY 01/12/17 01/12/17 01/11/17 History metroNIDAZOLE [Flagyl TAB] 500 mg PO Q8HR #30 tablet 01/14/17 Unknown Rx oxyCODONE /ACETAMINOPHEN [Percocet 1 tab PO Q6H PRN #6 tablet 01/14/17 Unknown Rx 5/325 mg] ED Review of Systems ROS: Stated complaint: FLU LIKE SYMPTOMS Other details as noted in HPI Comment: All other systems reviewed and negative Constitutional: chills, fever Eyes: denies: eye pain, eye discharge, vision change ENT: denies: ear pain, throat pain Respiratory: cough. denies: wheezing Cardiovascular: denies: chest pain, palpitations Gastrointestinal: denies: abdominal pain, nausea, diarrhea Genitourinary: denies: urgency, dysuria, discharge Musculoskeletal: arthralgia, myalgia Skin: denies: rash, lesions Neurological: denies: headache, weakness, paresthesias Physical Exam - Physical Exam Vital Signs: Vital Signs 06/06/17 09:16 Temperature 101.8 F H Pulse Rate 136 H Respiratory 32 H Rate Blood Pressure 85/68 O2 Sat by Pulse 95 Oximetry Physical Exam: GENERAL: Patient is ill-appearing. HENT: Normocephalic. Atraumatic. Patient has moist mucous membranes. Oropharynx is clear. EYES: Extraocular motions are intact. Pupils equal reactive to light bilaterally. NECK: Supple. Trachea is midline. CHEST/LUNGS: There are basilar rhonchi heard. A productive sounding cough is heard with coughing fits. Mild tachypnea but no excessive muscle use. There is no respiratory distress noted. HEART/CARDIOVASCULAR: Regular. There is mild to moderate tachycardia. There is no murmur. ABDOMEN: Abdomen is soft, nontender. Patient has normal bowel sounds. There is no abdominal distention. SKIN: Skin is warm and dry. NEURO: The patient is awake, alert, and oriented. The patient is cooperative. The patient has no focal neurologic deficits. The patient has normal speech. MUSCULOSKELETAL: There is no tenderness or deformity. There is no evidence of acute injury. ED Course Vital Signs 06/06/17 09:16 Temperature 101.8 F H Pulse Rate 136 H Respiratory 32 H Rate Blood Pressure 85/68 O2 Sat by Pulse 95 Oximetry ED Medical Decision Making - Lab Data Result diagrams: 06/06/17 10:17 06/06/17 10:17 - EKG Data -: EKG Interpreted by Me EKG shows normal: sinus rhythm, axis, intervals, QRS complexes, ST-T waves Rate: tachycardia (126 bpm) - EKG Data When compared to previous EKG there are: previous EKG unavailable Interpretation: normal EKG (with sinus tach) - Radiology Data Radiology results: image reviewed interpreted by me: Chest x-ray shows right lower lobe infiltrate concerning for pneumonia. - Medical Decision Making Patient presents with a few days of fever, chills and a productive cough as well as some bodyaches. Chest x-ray shows concern for right lower lobe pneumonia. She has a 25,000 white count, hypotension, tachycardia and some tachypnea. She does not appear in respiratory distress however. She was given a breathing treatment to help with her shortness of breath. Blood culture sent and the patient was started on azithromycin and Rocephin. She had some response with her tachycardia and hypotension to the 2 L IV fluid bolus she received an albuterol placed on a maintenance fluid. However with the surgical criteria, the source of infection and the hypotension, the patient appears to have sepsis is not septic shock. She'll be admitted to the hospital for further evaluation and treatment as been accepted for admission by the hospitalist, Dr. Rob. - Differential Diagnosis Sepsis, pneumonia, influenza, URI Critical Care Time: Yes Critical care time in (mins) excluding proc time.: 31 Critical care attestation.: If time is entered above; I have spent that time in minutes in the direct care of this critically ill patient, excluding procedure time. Critical care time spent on this patient in doing her initial evaluation, multiple re-evaluations, ordering and interpretation of labs and imaging, disposition planning and discussion with the admitting hospitalist. Critical Care Time: 31 minutes ED Disposition Clinical Impression: Sepsis Qualifiers: Sepsis type: sepsis due to unspecified organism Qualified Code(s): A41.9 - Sepsis, unspecified organism Leukocytosis Qualifiers: Leukocytosis type: unspecified Qualified Code(s): D72.829 - Elevated white blood cell count, unspecified Hypotension Qualifiers: Hypotension type: unspecified hypotension type Qualified Code(s): I95.9 - Hypotension, unspecified Pneumonia Qualifiers: Pneumonia type: due to unspecified organism Laterality: right Lung location: lower lobe of lung Qualified Code(s): J18.1 - Lobar pneumonia, unspecified organism Fever Qualifiers: Fever type: unspecified Qualified Code(s): R50.9 - Fever, unspecified Disposition: DC-09 OP ADMIT IP TO THIS HOSP Is pt being admited?: Yes Condition: Serious Time of Disposition: 11:36
[2017-06-06 10:41] LABS: Hematocrit 41.4 % (30.3-42.9); Hemoglobin 13.5 gm/dl (10.1-14.3); Mean Corpuscular HGB Conc 33 % (30-34); Mean Corpuscular Hemoglobin 28 pg (28-32); Mean Corpuscular Volume 85 fl (79-97); Platelet Count 246 K/mm3 (140-440); Red Blood Count 4.85 M/mm3 (3.65-5.03); Red Cell Distribution Width 15.6 % (13.2-15.2)
[2017-06-06 10:52] LABS: INR 1.2 (0.87-1.13)
[2017-06-06 11:08] LABS: Albumin 3.5 g/dL (3.9-5); Calcium 8.7 mg/dL (8.4-10.2)
[2017-06-06 11:12] LABS: Bacteria,Urine 2+ /HPF (Negative); Bilirubin,Urine NEG (Negative); Blood,Urine NEG (Negative); Color,Urine Amber (Yellow); Granular Casts,Urine 1 /LPF; Hyaline Casts,Urine 7 /LPF; Mucus,Urine 3+ /HPF; Nitrite,Urine NEG (Negative)
[2017-06-06] MEDS ORDERED: NACL 0.9% 1000 ML 1,000 ML IV ONE (11:18)
[2017-06-06 11:35] LABS: Band Neutrophils # (Manual) 1.5 K/mm3; Basophils % (Manual) 0 % (0.0-1.8); Eosinophils % (Manual) 0 % (0.0-4.3); Monocytes % (Manual) 0.5 % (0.0-7.3); Total Cells Counted 200
[2017-06-06 11:36] LABS: Giant Platelets Few
[2017-06-06] MEDS ORDERED: DUONEB *Not for PRN Use IH ONE (11:36)
[2017-06-06 11:37] LABS: RBC Morphology Normal
[2017-06-06] MEDS ORDERED: NACL 0.9% 1000 ML 1,000 ML ONE (13:01)
[2017-06-06] MEDS ORDERED: HEPARIN ONE (16:08)
[2017-06-06] MEDS: HEPARIN SUB-Q SCH ×2 (16:14→22:17)
--- NOTE | 2017-06-06 20:48 | History and Physical Report ---
History of Present Illness Date of examination: 06/06/17 Date of admission: 06/06/17 11:36 Chief complaint: CC Fever cough 2 days History of present illness: LUCIA 61-year-old -[place] female with PMH of HTN presents to the emergency department with complaints of a 3 day history of fever, chills and a productive cough as well as body aches. Some SOB present. She has not checked her temperature but has felt as if she had a fever. She did not take anything for her symptoms. She denies any tobacco or illicit drug use or abuse. No recent travel or sick contacts at home. 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 - Social History Smoking Status: Never Smoker Substance Use Type: None surg hx None Family Hx Htn Medications Home Medications Medication Instructions Recorded Confirmed Last Taken Type amLODIPine [Norvasc] 10 mg PO DAILY 01/12/17 01/12/17 01/11/17 History metroNIDAZOLE [Flagyl TAB] 500 mg PO Q8HR #30 tablet 01/14/17 Unknown Rx oxyCODONE /ACETAMINOPHEN [Percocet 1 tab PO Q6H PRN #6 tablet 01/14/17 Unknown Rx 5/325 mg] Review of Systems ROS: Stated complaint: FLU LIKE SYMPTOMS Other details as noted in HPI Comment: All other systems reviewed and negative Constitutional: chills, fever Eyes: denies: eye pain, eye discharge, vision change ENT: denies: ear pain, throat pain Respiratory: cough. denies: wheezing Cardiovascular: denies: chest pain, palpitations Gastrointestinal: denies: abdominal pain, nausea, diarrhea Genitourinary: denies: urgency, dysuria, discharge Musculoskeletal: arthralgia, myalgia Skin: denies: rash, lesions Neurological: denies: headache, weakness, paresthesias Medications and Allergies Allergies Allergy/AdvReac Type Severity Reaction Status Date / Time No Known Allergies Allergy Verified 06/06/17 09:16 Home Medications Medication Instructions Recorded Confirmed Last Taken Type amLODIPine [Norvasc] 10 mg PO DAILY 01/12/17 01/12/17 01/11/17 History metroNIDAZOLE [Flagyl TAB] 500 mg PO Q8HR #30 tablet 01/14/17 Unknown Rx oxyCODONE /ACETAMINOPHEN [Percocet 1 tab PO Q6H PRN #6 tablet 01/14/17 Unknown Rx 5/325 mg] Active Meds: Active Medications Heparin Sodium (Porcine) (Heparin) 5,000 unit SUB-Q Q8HR [facility]END[facility] TO [facility] Last Admin: 06/06/17 16:14 Dose: 5,000 unit Exam - Constitutional Vitals: Temp Pulse Resp BP Pulse Ox 98.0 F 100 H 20 108/53 94 06/06/17 17:07 06/06/17 17:07 06/06/17 17:07 06/06/17 17:07 06/06/17 17:07 General appearance: Present: no acute distress, mild distress, well-nourished - EENT Eyes: Present: PERRL ENT: hearing intact, clear oral mucosa - Neck Neck: Present: supple, normal ROM - Respiratory Respiratory effort: normal Respiratory: right: rales, bilateral: CTA - Cardiovascular Heart rate: 80 Rhythm: regular Heart Sounds: Present: S1 & S2. Absent: rub, click - Extremities Extremities: no ischemia, pulses intact, pulses symmetrical, No edema Peripheral Pulses: within normal limits - Abdominal General gastrointestinal: Present: soft, non-tender, non-distended, normal bowel sounds Female genitourinary: Present: normal - Rectal Rectal Exam: deferred - Integumentary Integumentary: Present: clear, warm, dry - Musculoskeletal Musculoskeletal: gait normal, strength equal bilaterally - Psychiatric Psychiatric: appropriate mood/affect, intact judgment & insight - Neurologic Neurologic: CNII-XII intact, moves all extremities - Allied Health Allied health notes reviewed: nursing, case management Results - Labs CBC & Chem 7: 06/07/17 04:45 06/07/17 04:45 Labs: Laboratory Last Values WBC 25.1 K/mm3 (4.5-11.0) H 06/06/17 10:17 RBC 4.85 M/mm3 (3.65-5.03) 06/06/17 10:17 Hgb 13.5 gm/dl (10.1-14.3) 06/06/17 10:17 Hct 41.4 % (30.3-42.9) 06/06/17 10:17 MCV 85 fl (79-97) 06/06/17 10:17 MCH 28 pg (28-32) 06/06/17 10:17 MCHC 33 % (30-34) 06/06/17 10:17 RDW 15.6 % (13.2-15.2) H 06/06/17 10:17 Plt Count 246 K/mm3 (140-440) 06/06/17 10:17 Add Manual Diff Complete 06/06/17 10:17 Total Counted 200 06/06/17 10:17 Seg Neutrophils % Management Trainee Marketing 06/06/17 10:17 Seg Neuts % (Manual) 91.0 % (40.0-70.0) H 06/06/17 10:17 Band Neutrophils % 6.0 % 06/06/17 10:17 Lymphocytes % (Manual) 2.5 % (13.4-35.0) L 06/06/17 10:17 Reactive Lymphs % (Man) 0 % 06/06/17 10:17 Monocytes % (Manual) 0.5 % (0.0-7.3) 06/06/17 10:17 Eosinophils % (Manual) 0 % (0.0-4.3) 06/06/17 10:17 Basophils % (Manual) 0 % (0.0-1.8) 06/06/17 10:17 Metamyelocytes % 0 % 06/06/17 10:17 Myelocytes % 0 % 06/06/17 10:17 Promyelocytes % 0 % 06/06/17 10:17 Blast Cells % 0 % 06/06/17 10:17 Nucleated RBC % Not Reportable 06/06/17 10:17 Seg Neutrophils # Man 22.8 K/mm3 (1.8-7.7) H 06/06/17 10:17 Band Neutrophils # 1.5 K/mm3 06/06/17 10:17 Lymphocytes # (Manual) 0.6 K/mm3 (1.2-5.4) L 06/06/17 10:17 Abs React Lymphs (Man) 0.0 K/mm3 06/06/17 10:17 Monocytes # (Manual) 0.1 K/mm3 (0.0-0.8) 06/06/17 10:17 Eosinophils # (Manual) 0.0 K/mm3 (0.0-0.4) 06/06/17 10:17 Basophils # (Manual) 0.0 K/mm3 (0.0-0.1) 06/06/17 10:17 Metamyelocytes # 0.0 K/mm3 06/06/17 10:17 Myelocytes # 0.0 K/mm3 06/06/17 10:17 Promyelocytes # 0.0 K/mm3 06/06/17 10:17 Blast Cells # 0.0 K/mm3 06/06/17 10:17 WBC Morphology Not Reportable 06/06/17 10:17 Hypersegmented Neuts Not Reportable 06/06/17 10:17 Hyposegmented Neuts Not Reportable 06/06/17 10:17 Hypogranular Neuts Not Reportable 06/06/17 10:17 Smudge Cells Not Reportable 06/06/17 10:17 Toxic Granulation Not Reportable 06/06/17 10:17 Toxic Vacuolation Not Reportable 06/06/17 10:17 Dohle Bodies Not Reportable 06/06/17 10:17 Pelger-Huet Anomaly Not Reportable 06/06/17 10:17 Jere Rods Not Reportable 06/06/17 10:17 Platelet Estimate Appears normal 06/06/17 10:17 Clumped Platelets Not Reportable 06/06/17 10:17 Plt Clumps, EDTA Not Reportable 06/06/17 10:17 Large Platelets Not Reportable 06/06/17 10:17 Giant Platelets Few 06/06/17 10:17 Platelet Satelliting Not Reportable 06/06/17 10:17 Plt Morphology Comment Not Reportable 06/06/17 10:17 RBC Morphology Normal 06/06/17 10:17 Dimorphic RBCs Not Reportable 06/06/17 10:17 Polychromasia Not Reportable 06/06/17 10:17 Hypochromasia Not Reportable 06/06/17 10:17 Poikilocytosis Not Reportable 06/06/17 10:17 Anisocytosis Not Reportable 06/06/17 10:17 Microcytosis Not Reportable 06/06/17 10:17 Macrocytosis Not Reportable 06/06/17 10:17 Spherocytes Not Reportable 06/06/17 10:17 Pappenheimer Bodies Not Reportable 06/06/17 10:17 Sickle Cells Not Reportable 06/06/17 10:17 Target Cells Not Reportable 06/06/17 10:17 Tear Drop Cells Not Reportable 06/06/17 10:17 Ovalocytes Not Reportable 06/06/17 10:17 Helmet Cells Not Reportable 06/06/17 10:17 Grimes-[place] Bodies Not Reportable 06/06/17 10:17 [place] Rings Not Reportable 06/06/17 10:17 [place] Cells Not Reportable 06/06/17 10:17 Bite Cells Not Reportable 06/06/17 10:17 Crenated Cell Not Reportable 06/06/17 10:17 Elliptocytes Not Reportable 06/06/17 10:17 Acanthocytes (Spur) Not Reportable 06/06/17 10:17 Rouleaux Not Reportable 06/06/17 10:17 Hemoglobin C Crystals Not Reportable 06/06/17 10:17 Schistocytes Not Reportable 06/06/17 10:17 Malaria parasites Not Reportable 06/06/17 10:17 Robert Bodies Not Reportable 06/06/17 10:17 Hem Pathologist Commnt No 06/06/17 10:17 PT 15.9 Sec. (12.2-14.9) H 06/06/17 10:17 INR 1.20 (0.87-1.13) H 06/06/17 10:17 VBG pH 7.424 (7.320-7.420) H 06/06/17 10:17 Sodium 139 mmol/L (137-145) 06/06/17 10:17 Potassium 3.7 mmol/L (3.6-5.0) 06/06/17 10:17 Chloride 98.2 mmol/L (98-107) 06/06/17 10:17 Carbon Dioxide 23 mmol/L (22-30) 06/06/17 10:17 Anion Gap 22 mmol/L 06/06/17 10:17 BUN 23 mg/dL (7-17) H 06/06/17 10:17 Creatinine 1.8 mg/dL (0.7-1.2) H 06/06/17 10:17 Estimated GFR 35 ml/min 06/06/17 10:17 BUN/Creatinine Ratio 13 % 06/06/17 10:17 Glucose 115 mg/dL (65-100) H 06/06/17 10:17 Lactic Acid 0.90 mmol/L (0.7-2.0) 06/06/17 15:57 Calcium 8.7 mg/dL (8.4-10.2) 06/06/17 10:17 Total Bilirubin 1.20 mg/dL (0.1-1.2) 06/06/17 10:17 AST 22 units/L (5-40) 06/06/17 10:17 ALT 10 units/L (7-56) 06/06/17 10:17 Alkaline Phosphatase 75 units/L (35-129) 06/06/17 10:17 Total Protein 6.9 g/dL (6.3-8.2) 06/06/17 10:17 Albumin 3.5 g/dL (3.9-5) L 06/06/17 10:17 Albumin/Globulin Ratio 1.0 % 06/06/17 10:17 Urine Color Alycia (Yellow) 06/06/17 Unknown Urine Turbidity Slightly-cloudy (Clear) 06/06/17 Unknown Urine pH 5.0 (5.0-7.0) 06/06/17 Unknown Ur Specific [place] 1.020 (1.003-1.030) 06/06/17 Unknown Urine Protein 100 mg/dl mg/dL (Negative) 06/06/17 Unknown Urine Glucose (UA) 50 mg/dL (Negative) 06/06/17 Unknown Urine Ketones Tr mg/dL (Negative) 06/06/17 Unknown Urine Blood Neg (Negative) 06/06/17 Unknown Urine Nitrite Neg (Negative) 06/06/17 Unknown Urine Bilirubin Neg (Negative) 06/06/17 Unknown Urine Urobilinogen 4.0 mg/dL (<2.0) 06/06/17 Unknown Ur Leukocyte Esterase Sm (Negative) 06/06/17 Unknown Urine WBC (Auto) 7.0 /HPF (0.0-6.0) H 06/06/17 Unknown Urine RBC (Auto) 8.0 /HPF (0.0-6.0) 06/06/17 Unknown U Epithel Cells (Auto) 19.0 /HPF (0-13.0) H 06/06/17 Unknown Urine Bacteria (Auto) 2+ /HPF (Negative) 06/06/17 Unknown Hyaline Casts 7 /LPF 06/06/17 Unknown Granular Casts 1 /LPF 06/06/17 Unknown Urine Mucus 3+ /HPF 06/06/17 Unknown Short CBC 06/06/17 06/07/17 Range/Units 10:17 04:45 WBC 25.1 H 13.9 H (4.5-11.0) K/mm3 Hgb 13.5 12.0 (10.1-14.3) gm/dl Hct 41.4 36.5 (30.3-42.9) % Plt Count 246 207 (140-440) K/mm3 BMP 06/06/17 10:17 Sodium 139 Potassium 3.7 Chloride 98.2 Carbon Dioxide 23 BUN 23 H Creatinine 1.8 H Glucose 115 H Calcium 8.7 Liver Function 06/06/17 Range/Units 10:17 Total Bilirubin 1.20 (0.1-1.2) mg/dL AST 22 (5-40) units/L ALT 10 (7-56) units/L Alkaline Phosphatase 75 (35-129) units/L Albumin 3.5 L (3.9-5) g/dL Urine 06/06/17 Range/Units Unknown Urine Color Alycia (Yellow) Urine pH 5.0 (5.0-7.0) Ur Specific [place] 1.020 (1.003-1.030) Urine Protein 100 mg/dl (Negative) mg/dL Urine Glucose (UA) 50 (Negative) mg/dL - Imaging and Cardiology EKG: report reviewed Chest x-ray: report reviewed (RLL Pneumonia) Assessment and Plan Advance Directives: Yes (Full code) VTE prophylaxis?: Chemical Plan of care discussed with patient/family: Yes - Patient Problems (1) SIRS (systemic inflammatory response syndrome) Current Visit: Yes Status: Acute Plan to address problem: Given High white count Hypotension Fever and Pneumonia --in favor of SIRS IV fluids and IV abx--Zosyn started ID consult requested-reg Abx choice (2) Pneumonia Current Visit: Yes Status: Acute Qualifiers: Pneumonia type: due to Pseudomonas Laterality: right Lung location: lower lobe of lung Qualified Code(s): J15.1 - Pneumonia due to Pseudomonas Plan to address problem: IV Zosyn for now Iv Fluids (3) Leukocytosis Current Visit: Yes Status: Acute Qualifiers: Leukocytosis type: bandemia Qualified Code(s): D72.825 - Bandemia Plan to address problem: Sec To SIRS and Pneumonia (4) Hypotension Current Visit: Yes Status: Acute Qualifiers: Hypotension type: unspecified hypotension type Qualified Code(s): I95.9 - Hypotension, unspecified Plan to address problem: Corrected with IV fluids (5) HTN (hypertension) Current Visit: Yes Status: Chronic Qualifiers: Hypertension type: essential hypertension Qualified Code(s): I10 - Essential (primary) hypertension Plan to address problem: HYpotensive-hence hold Amlodipine.Resume when stable (6) DVT prophylaxis Current Visit: Yes Status: Acute Plan to address problem: On Heparin
[2017-06-06] MEDS ORDERED: ZOFRAN IV PRN (20:51)
[2017-06-06] MEDS ORDERED: MORPHINE IV PRN ×2 (20:51)
[2017-06-06] MEDS ORDERED: MILK OF MAGNESIA PO PRN (20:51)
[2017-06-06] MEDS ORDERED: TYLENOL PO PRN (20:51)
[2017-06-06] MEDS ORDERED: DULCOLAX PR PRN (20:51)
[2017-06-06] MEDS ORDERED: PERCOCET 5/325 PO PRN (20:51)
[2017-06-06] MEDS ORDERED: DUONEB *Not for PRN Use IH (20:59)
[2017-06-06] MEDS ORDERED: ZOSYN/NS 4.5GM/100ML 4.5 GM/100 ML VIAL IV SCH (22:00)
[2017-06-06] MEDS: D5NS 1,000 ML IV SCH (22:16)
[2017-06-06] MEDS: PEPCID IV SCH (22:16)
[2017-06-07] MEDS: ZOSYN/NS 2.25 GM/50ML 2.25 GM/50 ML BAG IV SCH ×2 (00:38→06:00)
[2017-06-07 05:34] LABS: Hematocrit 36.5 % (30.3-42.9); Mean Corpuscular HGB Conc 33 % (30-34); Mean Corpuscular Hemoglobin 29 pg (28-32); Mean Corpuscular Volume 87 fl (79-97); Platelet Count 207 K/mm3 (140-440); Red Blood Count 4.22 M/mm3 (3.65-5.03); Red Cell Distribution Width 16.1 % (13.2-15.2)
[2017-06-07] MEDS: HEPARIN SUB-Q SCH ×3 (06:00→21:02)
[2017-06-07 06:07] LABS: Alanine Aminotransferase 10 units/L (7-56); Albumin 2.9 g/dL (3.9-5); BUN/Creatinine Ratio 20; Blood Urea Nitrogen 18 mg/dL (7-17); Calcium 8.2 mg/dL (8.4-10.2); Hemolysis Index 40
[2017-06-07] MEDS: D5NS 1,000 ML IV SCH ×2 (08:51→21:03)
[2017-06-07] MEDS: PEPCID IV SCH (09:10)
[2017-06-07 10:03] LABS: Band Neutrophils # (Manual) 0.8 K/mm3; Basophils % (Manual) 0 % (0.0-1.8); Total Cells Counted 100
[2017-06-07] MEDS ORDERED: BUDESONIDE 3 MG PO SCH (10:45)
[2017-06-07 11:30] LABS: RBC Morphology Normal
[2017-06-07] MEDS ORDERED: NORVASC PO ONE (12:00)
--- NOTE | 2017-06-07 13:18 | Consultation ---
History of Present Illness - Reason for Consult Consult date: 06/07/17 SIRS Requesting physician: DEBBIE BENITES - History of Present Illness 61 years old female with history of hypertension, admitted on 12/04/2017 due to 3 days history of generalized malaise, cough with clear sputum production and fever. Patient denies any sick contacts. Patient denies any chest pain, shortness of breath, nausea vomiting diarrhea. Patient reports she had her flu shot this year. In the emergency room, initial temperature was 101.8, heart rate 136, respiration 32, O2 sat 95, blood pressure 85/68. Initial white count 25. Hemoglobin 13.5. Creat 1.8. UA showed 7 WBCs and small leukocyte esterase. Chest x-ray show a right lower lobe pneumonia. Microbiology: Blood cultures: 06/06 ngtd Urine cultures: 06/06 10-100K mixed bacteria Current Antimicrobials: Zosyn Previous Antimicrobials: Past History Past Medical History: hypertension Past Surgical History: No surgical history Social history: denies: smoking, alcohol abuse, prescription drug abuse, IV drug use Family history: no significant family history Medications and Allergies Allergies Allergy/AdvReac Type Severity Reaction Status Date / Time No Known Allergies Allergy Verified 06/06/17 09:16 Home Medications Medication Instructions Recorded Confirmed Last Taken Type amLODIPine [Norvasc] 10 mg PO DAILY 01/12/17 06/07/17 1 Day Ago History ~06/06/17 Budesonide [Entocort EC] 3 mg PO DAILY 06/07/17 06/07/17 1 Day Ago History ~06/06/17 Active Meds: Active Medications Acetaminophen (Tylenol) 650 mg PO Q4H PRN PRN Reason: Pain MILD(1-3)/Fever >100.5/COTTO Albuterol/Ipratropium (Duoneb *Not For Prn Use*) 1 ampul IH Q3HRT PRN PRN Reason: Wheezing Amlodipine Besylate (Norvasc) 10 mg PO DAILY JARRETT Bisacodyl (Dulcolax) 10 mg [place] QDAY PRN PRN Reason: Constipation unrelieved by MOM Heparin Sodium (Porcine) (Heparin) 5,000 unit SUB-Q Q8HR JARRETT Last Admin: 06/07/17 06:00 Dose: 5,000 unit Dextrose/Sodium Chloride (D5ns) 1,000 mls @ 100 mls/hr IV DIRECT JARRETT Stop: 06/07/17 23:59 Last Admin: 06/07/17 08:51 Dose: 100 mls/hr Piperacillin Sod/Tazobactam Sod (Zosyn/Ns 2.25 Gm/50ml) 2.25 gm in 50 mls @ 100 mls/hr IV Q6HR [facility] Last Admin: 06/07/17 06:00 Dose: 100 mls/hr Magnesium Hydroxide (Milk Of Magnesia) 30 ml PO Q4H PRN PRN Reason: Constipation Methylprednisolone Sodium Succinate (Solu-Medrol) 40 mg IV Q8HR [facility] Last Admin: 06/07/17 06:00 Dose: 40 mg Miscellaneous Medication (Budesonide [Entocort Ec]) 3 mg PO DAILY [facility] Morphine Sulfate (Morphine) 2 mg IV Q4H PRN PRN Reason: Pain, Moderate (4-6) Morphine Sulfate (Morphine) 4 mg IV Q4H PRN PRN Reason: Pain , Severe (7-10) Ondansetron HCl (Zofran) 4 mg IV Q8H PRN PRN Reason: N/V unrelieved by Reglan Oxycodone/Acetaminophen (Percocet 5/325) 1 tab PO Q6H PRN PRN Reason: Pain, Moderate (4-6) Review of Systems All systems: negative (as per HPI) Physical Examination - Physical Exam Narrative exam: General appearance: Alert in NAD, conversant Eyes: anicteric sclerae, moist conjunctivae; no lid-lag; PERRLA HENT: Atraumatic; oropharynx clear Neck: Trachea midline; supple, no thyromegaly or lymphadenopathy Lungs: +mary rhonchi CV: RRR, no murmurs Abdomen: Soft, non-tender; no masses or hepatosplenomegaly Extremities: No peripheral edema or extremity lymphadenopathy Skin: Normal temperature, turgor and texture; no rash, ulcers or subcutaneous nodules Psych: Appropriate affect, alert and oriented to person, place and time. Neuro: alert and oriented x 3. Moving all extermities Lines: No CVL / PICC - Constitutional Vitals: Vital Signs Temp Pulse Resp BP Pulse Ox 97.8 F 91 H 18 115/51 98 06/07/17 08:08 06/07/17 12:20 06/07/17 09:26 06/07/17 12:20 06/07/17 09:26 Temperature -Last 24 Hours Temperature 97.8 F Temperature 98.0 F Temperature 99.7 F Temperature 98.8 F Temperature 98.0 F Temperature 98.2 F Results - Labs CBC & Chem 7: 06/07/17 04:45 06/07/17 04:45 Labs: Abnormal lab results 06/07/17 06/07/17 Range/Units 04:45 04:45 WBC 13.9 H (4.5-11.0) K/mm3 RDW 16.1 H (13.2-15.2) % Seg Neuts % (Manual) 86 H (40.0-70.0) % Lymphocytes % (Manual) 6 L (13.4-35.0) % Seg Neutrophils # Man 11.9 H (1.8-7.7) K/mm3 Lymphocytes # (Manual) 0.8 L (1.2-5.4) K/mm3 BUN 18 H (7-17) mg/dL Glucose 136 H (65-100) mg/dL Calcium 8.2 L (8.4-10.2) mg/dL Albumin 2.9 L (3.9-5) g/dL Assessment and Plan Assessment: 1) Severe Sepsis: Present on admission, manifested by fever, tachycardia, hypotension, leukocytosis, bandemia, increased lactate. Etiology most likely pneumonia. 2) RLL pneumonia: likely CAP 3) ART- from sepsis Plan: -stop zosyn -start ceftriaxone 2 g IV qday and levaquin 750 mg q day to cover Strep and atypical -get strep urine antigen and legionella -monitor leukocytosis and creatinine -check influenza Thank you Dr Benites for your consultation, will follow up with you. Cara Meza MD Infectious Diseases Specialist [facility] ([facility] M [phone] O [phone]
[2017-06-07] MEDS ORDERED: LEVAQUIN 750MG/150ML 750 MG/150 ML BAG IV SCH (15:00)
[2017-06-07] MEDS ORDERED: cefTRIAXone 2 GM in NACL 0.9% 20 ML IV SCH (16:00)
--- NOTE | 2017-06-07 18:42 | Progress Note ---
Assessment and Plan Assessment and plan: Severe sepsis - Patient is managed according to sepsis protocol with IV antibiotics and fluids - ID was consulted and recommended IV ceftriaxone and Levaquin Right Lower lobe pneumonia UTI DVT prophylaxis Disposition - Possible discharge tomorrow if patients condition continues to improve. History Interval history: Patient was seen and evaluated this morning, patient denied fever, chills. Cough is getting better. Hospitalist Physical - Physical exam Narrative exam: Not in cardiopulmonary distress. The patient appeared well nourished and normally developed. Vital signs as documented. Head exam is unremarkable. No scleral icterus . Neck is without jugular venous distension, thyromegaly, or carotid bruits. Lungs are clear to auscultation. Cardiac exam reveals regular rate and Rhythm. First and second heart sounds normal. No murmurs, rubs or gallops. Abdominal exam reveals normal bowel sounds, no masses, no organomegaly and no aortic enlargement. Extremities are nonedematous and both femoral and pedal pulses are normal. TOOL DESIGN CHECKER: Alert and oriented 3. No focal weakness. - Constitutional Vitals: Temp Pulse Resp BP Pulse Ox 97.4 F L 102 H 18 138/68 94 06/07/17 16:57 06/07/17 16:55 06/07/17 16:57 06/07/17 16:57 06/07/17 16:55 General appearance: Present: no acute distress, mild distress, well-nourished Results - Labs CBC & Chem 7: 06/07/17 04:45 06/07/17 04:45 Labs: Laboratory Last Values WBC 13.9 K/mm3 (4.5-11.0) H 06/07/17 04:45 RBC 4.22 M/mm3 (3.65-5.03) 06/07/17 04:45 Hgb 12.0 gm/dl (10.1-14.3) 06/07/17 04:45 Hct 36.5 % (30.3-42.9) 06/07/17 04:45 MCV 87 fl (79-97) 06/07/17 04:45 MCH 29 pg (28-32) 06/07/17 04:45 MCHC 33 % (30-34) 06/07/17 04:45 RDW 16.1 % (13.2-15.2) H 06/07/17 04:45 Plt Count 207 K/mm3 (140-440) 06/07/17 04:45 Add Manual Diff Complete 06/07/17 04:45 Total Counted 100 06/07/17 04:45 Seg Neutrophils % Account Executive Sales Representative 06/07/17 04:45 Seg Neuts % (Manual) 86 % (40.0-70.0) H 06/07/17 04:45 Band Neutrophils % 6.0 % 06/07/17 04:45 Lymphocytes % (Manual) 6 % (13.4-35.0) L 06/07/17 04:45 Reactive Lymphs % (Man) 0 % 06/07/17 04:45 Monocytes % (Manual) 1.0 % (0.0-7.3) 06/07/17 04:45 Eosinophils % (Manual) 1.0 % (0.0-4.3) 06/07/17 04:45 Basophils % (Manual) 0 % (0.0-1.8) 06/07/17 04:45 Metamyelocytes % 0 % 06/07/17 04:45 Myelocytes % 0 % 06/07/17 04:45 Promyelocytes % 0 % 06/07/17 04:45 Blast Cells % 0 % 06/07/17 04:45 Nucleated RBC % Not Reportable 06/07/17 04:45 Seg Neutrophils # Man 11.9 K/mm3 (1.8-7.7) H 06/07/17 04:45 Band Neutrophils # 0.8 K/mm3 06/07/17 04:45 Lymphocytes # (Manual) 0.8 K/mm3 (1.2-5.4) L 06/07/17 04:45 Abs React Lymphs (Man) 0.0 K/mm3 06/07/17 04:45 Monocytes # (Manual) 0.1 K/mm3 (0.0-0.8) 06/07/17 04:45 Eosinophils # (Manual) 0.1 K/mm3 (0.0-0.4) 06/07/17 04:45 Basophils # (Manual) 0.0 K/mm3 (0.0-0.1) 06/07/17 04:45 Metamyelocytes # 0.0 K/mm3 06/07/17 04:45 Myelocytes # 0.0 K/mm3 06/07/17 04:45 Promyelocytes # 0.0 K/mm3 06/07/17 04:45 Blast Cells # 0.0 K/mm3 06/07/17 04:45 WBC Morphology Not Reportable 06/07/17 04:45 Hypersegmented Neuts Not Reportable 06/07/17 04:45 Hyposegmented Neuts Not Reportable 06/07/17 04:45 Hypogranular Neuts Not Reportable 06/07/17 04:45 Smudge Cells Not Reportable 06/07/17 04:45 Toxic Granulation Not Reportable 06/07/17 04:45 Toxic Vacuolation Not Reportable 06/07/17 04:45 Dohle Bodies Not Reportable 06/07/17 04:45 Pelger-Huet Anomaly Not Reportable 06/07/17 04:45 Jere Rods Not Reportable 06/07/17 04:45 Platelet Estimate Not Reportable 06/07/17 04:45 Clumped Platelets Not Reportable 06/07/17 04:45 Plt Clumps, EDTA Not Reportable 06/07/17 04:45 Large Platelets Not Reportable 06/07/17 04:45 Giant Platelets Not Reportable 06/07/17 04:45 Platelet Satelliting Not Reportable 06/07/17 04:45 Plt Morphology Comment Not Reportable 06/07/17 04:45 RBC Morphology Normal 06/07/17 04:45 Dimorphic RBCs Not Reportable 06/07/17 04:45 Polychromasia Not Reportable 06/07/17 04:45 Hypochromasia Not Reportable 06/07/17 04:45 Poikilocytosis Not Reportable 06/07/17 04:45 Anisocytosis Not Reportable 06/07/17 04:45 Microcytosis Not Reportable 06/07/17 04:45 Macrocytosis Not Reportable 06/07/17 04:45 Spherocytes Not Reportable 06/07/17 04:45 Pappenheimer Bodies Not Reportable 06/07/17 04:45 Sickle Cells Not Reportable 06/07/17 04:45 Target Cells Not Reportable 06/07/17 04:45 Tear Drop Cells Not Reportable 06/07/17 04:45 Ovalocytes Not Reportable 06/07/17 04:45 Helmet Cells Not Reportable 06/07/17 04:45 [place] Bodies Not Reportable 06/07/17 04:45 [place] Rings Not Reportable 06/07/17 04:45 [place] Cells Not Reportable 06/07/17 04:45 Bite Cells Not Reportable 06/07/17 04:45 Crenated Cell Not Reportable 06/07/17 04:45 Elliptocytes Not Reportable 06/07/17 04:45 Acanthocytes (Spur) Not Reportable 06/07/17 04:45 Rouleaux Not Reportable 06/07/17 04:45 Hemoglobin C Crystals Not Reportable 06/07/17 04:45 Schistocytes Not Reportable 06/07/17 04:45 Malaria parasites Not Reportable 06/07/17 04:45 Robert Bodies Not Reportable 06/07/17 04:45 Hem Pathologist Commnt No 06/07/17 04:45 PT 15.9 Sec. (12.2-14.9) H 06/06/17 10:17 INR 1.20 (0.87-1.13) H 06/06/17 10:17 VBG pH 7.424 (7.320-7.420) H 06/06/17 10:17 Sodium 143 mmol/L (137-145) 06/07/17 04:45 Potassium 4.2 mmol/L (3.6-5.0) 06/07/17 04:45 Chloride 106.3 mmol/L (98-107) 06/07/17 04:45 Carbon Dioxide 26 mmol/L (22-30) 06/07/17 04:45 Anion Gap 15 mmol/L 06/07/17 04:45 BUN 18 mg/dL (7-17) H 06/07/17 04:45 Creatinine 0.9 mg/dL (0.7-1.2) 06/07/17 04:45 Estimated GFR > 60 ml/min 06/07/17 04:45 BUN/Creatinine Ratio 20 % 06/07/17 04:45 Glucose 136 mg/dL (65-100) H 06/07/17 04:45 Hemoglobin A1c 5.5 % (4-6) 06/06/17 10:17 Lactic Acid 0.90 mmol/L (0.7-2.0) 06/06/17 15:57 Calcium 8.2 mg/dL (8.4-10.2) L 06/07/17 04:45 Total Bilirubin 0.40 mg/dL (0.1-1.2) 06/07/17 04:45 AST 21 units/L (5-40) 06/07/17 04:45 ALT 10 units/L (7-56) 06/07/17 04:45 Alkaline Phosphatase 65 units/L (35-129) 06/07/17 04:45 C-Reactive Protein 23.10 mg/dL (0.00-1.30) H 06/07/17 04:45 Total Protein 6.4 g/dL (6.3-8.2) 06/07/17 04:45 Albumin 2.9 g/dL (3.9-5) L 06/07/17 04:45 Albumin/Globulin Ratio 0.8 % 06/07/17 04:45 Urine Color Alycia (Yellow) 06/06/17 Unknown Urine Turbidity Slightly-cloudy (Clear) 06/06/17 Unknown Urine pH 5.0 (5.0-7.0) 06/06/17 Unknown Ur Specific [place] 1.020 (1.003-1.030) 06/06/17 Unknown Urine Protein 100 mg/dl mg/dL (Negative) 06/06/17 Unknown Urine Glucose (UA) 50 mg/dL (Negative) 06/06/17 Unknown Urine Ketones Tr mg/dL (Negative) 06/06/17 Unknown Urine Blood Neg (Negative) 06/06/17 Unknown Urine Nitrite Neg (Negative) 06/06/17 Unknown Urine Bilirubin Neg (Negative) 06/06/17 Unknown Urine Urobilinogen 4.0 mg/dL (<2.0) 06/06/17 Unknown Ur Leukocyte Esterase Sm (Negative) 06/06/17 Unknown Urine WBC (Auto) 7.0 /HPF (0.0-6.0) H 06/06/17 Unknown Urine RBC (Auto) 8.0 /HPF (0.0-6.0) 06/06/17 Unknown U Epithel Cells (Auto) 19.0 /HPF (0-13.0) H 06/06/17 Unknown Urine Bacteria (Auto) 2+ /HPF (Negative) 06/06/17 Unknown Hyaline Casts 7 /LPF 06/06/17 Unknown Granular Casts 1 /LPF 06/06/17 Unknown Urine Mucus 3+ /HPF 06/06/17 Unknown
[2017-06-08] MEDS: HEPARIN SUB-Q SCH (05:37)
[2017-06-08 05:49] LABS: Hematocrit 34.1 % (30.3-42.9); Hemoglobin 11.3 gm/dl (10.1-14.3); Mean Corpuscular HGB Conc 33 % (30-34); Mean Corpuscular Hemoglobin 29 pg (28-32); Mean Corpuscular Volume 86 fl (79-97); Platelet Count 209 K/mm3 (140-440); Red Blood Count 3.95 M/mm3 (3.65-5.03); Red Cell Distribution Width 16.3 % (13.2-15.2)
[2017-06-08 06:07] LABS: BUN/Creatinine Ratio 21; Blood Urea Nitrogen 15 mg/dL (7-17); Calcium 8.3 mg/dL (8.4-10.2); Hemolysis Index 40
[2017-06-08] MEDS ORDERED: NORVASC PO SCH (10:00)
[2017-06-08 10:22] LABS: Band Neutrophils # (Manual) 1.1 K/mm3; Basophils % (Manual) 0 % (0.0-1.8); Eosinophils % (Manual) 0 % (0.0-4.3); RBC Morphology Normal; Total Cells Counted 100
--- NOTE | 2017-06-08 11:36 | Discharge Summary ---
Providers - Providers Date of Admission: 06/06/17 11:36 Attending physician: SERGIO LEBLANC MD 06/06/17 20:57 Consult to Physician [CONS] Routine Consulting Provider: YARELY SEYMOUR Reason For Exam: sirs/sepsis Place consult to:: id Notified:: y Was contact made?: Yes Primary care physician: [employer] Hospitalization Reason for admission: sepsis, RLL pneumonia Condition: Serious Pertinent studies: CXR RLL infiltrates Hospital course: 61-year-old -[place] female with PMH of HTN presents to the emergency department with complaints of a 3 day history of fever, chills and a productive cough as well as body aches. Some SOB present. She has not checked her temperature but has felt as if she had a fever. She did not take anything for her symptoms. She denies any tobacco or illicit drug use or abuse. No recent travel or sick contacts at home. Patient was admitted for sepsis secondary to RLL pneumonia, UTI with IV ceftriaxone and levaquin. Patient showed marked clinical improvement and was discharged home with PO levaquin. ID was consulted and recommendations were implemented. Patient was hemodynamically stable at the time of discharge. Disposition: TO HOME OR SELFCARE Time spent for discharge: 34 minutes - Discharge Diagnoses (1) Hypotension Status: Acute Qualifiers: Hypotension type: unspecified hypotension type Qualified Code(s): I95.9 - Hypotension, unspecified (2) Pneumonia Status: Acute Qualifiers: Pneumonia type: due to Pseudomonas Laterality: right Lung location: lower lobe of lung Qualified Code(s): J15.1 - Pneumonia due to Pseudomonas (3) Sepsis Status: Acute Qualifiers: Sepsis type: sepsis due to unspecified organism Qualified Code(s): A41.9 - Sepsis, unspecified organism Core Measure Documentation - Palliative Care Palliative Care/ Comfort Measures: Not Applicable - Core Measures Any of the following diagnoses?: none Exam - Physical Exam Narrative exam: Not in cardiopulmonary distress. The patient appeared well nourished and normally developed. Vital signs as documented. Head exam is unremarkable. No scleral icterus . Neck is without jugular venous distension, thyromegaly, or carotid bruits. Lungs are clear to auscultation. Cardiac exam reveals regular rate and Rhythm. First and second heart sounds normal. No murmurs, rubs or gallops. Abdominal exam reveals normal bowel sounds, no masses, no organomegaly and no aortic enlargement. Extremities are nonedematous and both femoral and pedal pulses are normal. [employer]OR LODGE CLERK: Alert and oriented 3. No focal weakness. - Constitutional Vitals: Temp Pulse Resp BP Pulse Ox 97.7 F 81 16 111/55 97 06/08/17 04:20 06/08/17 10:00 06/08/17 10:00 06/08/17 09:39 06/08/17 10:00 Plan Activity: no restrictions Weight Bearing Status: Full Weight Bearing Diet: low cholesterol, low salt Additional Instructions: please follow @[facility] in 1 week Follow up with: [facility] [Provider Group] - 7 Days [facility], [Primary Care Provider] - 7 Days Prescriptions: Levofloxacin [Levaquin] 750 mg PO QDAY #7 tablet
[2017-06-08 12:51] VITALS: BP 103/48
--- NOTE | 2017-06-08 13:08 | Progress Note ---
Assessment and Plan Assessment: 1) Severe Sepsis: resovled. Etiology most likely pneumonia. 2) RLL pneumonia: likely CAP - improving 3) ART- from sepsis - better Plan: -continue ceftriaxone 2 g IV qday and levaquin 750 mg q day to cover Strep and atypical -f/u strep urine antigen and legionella -ok to d/c on levaquin 750 mg po qday total 7 days I am signing off Thank you Dr Rob for your consultation, will follow up with you. Cara Meza MD Infectious Diseases Specialist [facility] M [phone] Subjective Date of service: 06/08/17 Principal diagnosis: pneumonia Interval history: Feels much better, breathing better, no SOB, no fever, minimal cough. Microbiology: Blood cultures: 06/06 ngtd Urine cultures: 06/06 10-100K mixed bacteria Influenza neg Current Antimicrobials: ceftriaxone levaquin Objective - Exam Narrative Exam: General appearance: Alert in NAD, conversant Eyes: anicteric sclerae, moist conjunctivae; no lid-lag; PERRLA HENT: Atraumatic; oropharynx clear Neck: Trachea midline; supple, no thyromegaly or lymphadenopathy Lungs: +mary rhonchi - decreased CV: RRR, no murmurs Abdomen: Soft, non-tender; no masses or hepatosplenomegaly Extremities: No peripheral edema or extremity lymphadenopathy Skin: Normal temperature, turgor and texture; no rash, ulcers or subcutaneous nodules Psych: Appropriate affect, alert and oriented to person, place and time. Neuro: alert and oriented x 3. Moving all extermities Lines: No CVL / PICC - Constitutional Vitals: Vital Signs Temp Pulse Resp BP Pulse Ox 97.9 F 85 18 103/48 92 06/08/17 12:25 06/08/17 12:25 06/08/17 12:25 06/08/17 12:25 06/08/17 12:25 Temperature -Last 24 Hours Temperature 97.9 F Temperature 97.7 F Temperature 97.7 F Temperature 97.4 F Temperature 97.4 F Temperature 97.4 F - Labs CBC & Chem 7: 06/08/17 05:00 06/08/17 05:00 Labs: Abnormal lab results 06/07/17 06/08/17 06/08/17 Range/Units 04:45 05:00 05:00 RDW 16.3 H (13.2-15.2) % Seg Neuts % (Manual) 78.0 H (40.0-70.0) % Lymphocytes % (Manual) 11.0 L (13.4-35.0) % Seg Neutrophils # Man 8.3 H (1.8-7.7) K/mm3 Chloride 108.3 H (98-107) mmol/L Glucose 154 H (65-100) mg/dL Calcium 8.3 L (8.4-10.2) mg/dL C-Reactive Protein 23.10 H (0.00-1.30) mg/dL
== END 2017-06-08 14:28 | disposition home or self-care (01) | DRG 871 ==
LOC: ED 08:45 → 4A 11:36
PROVIDERS: ADMIT Internal Medicine; ATTEND Internal Medicine
DX: A41.9 Sepsis, unspecified organism (principal); J18.1 Lobar pneumonia, unspecified organism; N17.9 Acute kidney failure, unspecified; N39.0 Urinary tract infection, site not specified; I10 Essential (primary) hypertension; R65.20 Severe sepsis without septic shock
CPT/HCPCS: 36415; 71046; 80048; 80053; 81001; 82140; 82805; 83036; 85007; 85025; 85610; 86140; 87040; 87086; 87400; 87449; 93005; 93010; 94640; 96365; 96367; J0456; J0696; J1644; J1956; J2543; J2920; J7030; J7040; J7042; J7050

== ENCOUNTER 2021-09-18 19:54 | Emergency (ER) | payer OTHER ==
[2021-09-18 20:10] VITALS: BP 126/68
== END 2021-09-19 00:18 | disposition left against medical advice (07) ==
LOC: ED 19:54
DX: R06.02 Shortness of breath (principal); Z53.21 Procedure and treatment not carried out due to patient leaving prior to being seen by health care provider